=== PATIENT | male | born 1960 | race Caucasian/White ===

== ENCOUNTER 2018-10-28 15:37 | Inpatient (IN) | payer OTHER ==
[~2018-10-28] VITALS: Ht 180.3 cm; Wt 184.2 kg
--- NOTE | 2018-10-28 15:59 | PHYS DOC ---
Past Medical History Past Medical History: Asthma Additional Past Surgical Histo: donated a kidney Alcohol Use: Occasionally Drug Use: None Adult General Chief Complaint Chief Complaint: SYNCOPE HPI HPI Patient is a 57 year old male who presents with a syncopal episode. Patient was sitting at work when his vision grayed down and next thing he knew there were other people were around him. He did become diaphoretic. Patient is a nurse. He denies any chest pain or palpitations. Denies any nausea or vomiting. Denies any focal weakness. [] Review of Systems Review of Systems Constitutional: Denies fever or chills [] Eyes: Denies change in visual acuity, redness, or eye pain [] HENT: Denies nasal congestion or sore throat [] Respiratory: Denies cough or shortness of breath [] Cardiovascular: No chest pain or palpitations[] GI: Denies abdominal pain, nausea, vomiting, bloody stools or diarrhea [] : Denies dysuria or hematuria [] Musculoskeletal: Denies back pain or joint pain [] Integument: Denies rash or skin lesions [] Neurologic: Denies headache, focal weakness or sensory changes [] Endocrine: Denies polyuria or polydipsia [] All other systems were reviewed and found to be within normal limits, except as documented in this note. Allergies Allergies Allergies Coded Allergies Type Severity Reaction Last Updated Verified No Known Drug Allergies 10/28/18 No Physical Exam Physical Exam Constitutional: Well developed, well nourished, no acute distress, non-toxic appearance. [] HENT: Normocephalic, atraumatic, bilateral external ears normal, oropharynx moist, no oral exudates, nose normal. [] Eyes: PERRLA, EOMI, conjunctiva normal, no discharge. [] Neck: Normal range of motion, no tenderness, supple, no stridor. [] Cardiovascular:Heart rate regular rhythm, no murmur [] Lungs & Thorax: Bilateral breath sounds clear to auscultation [] Abdomen: Bowel sounds normal, soft, no tenderness, no masses, no pulsatile masses. [] Skin: Warm, dry, no erythema, no rash. [] Back: No tenderness, no CVA tenderness. [] Extremities: No tenderness, no cyanosis, no clubbing, ROM intact, no edema. [] Neurologic: Alert and oriented X 3, normal motor function, normal sensory function, no focal deficits noted. [] Psychologic: Affect normal, judgement normal, mood normal. [] Current Patient Data Vital Signs Vital Signs Date Time Temp Pulse Resp B/P (MAP) Pulse Ox O2 Delivery O2 Flow Rate FiO2 10/28/18 15:50 98.3 95 19 98/53 (68) 90 Room Air 98.3 Lab Values Laboratory Tests Test 10/28/18 16:30 White Blood Count 14.2 x10^3/uL (4.0-11.0) H Red Blood Count 5.50 x10^6/uL (4.30-5.70) Hemoglobin 16.1 g/dL (13.0-17.5) Hematocrit 48.3 % (39.0-53.0) Mean Corpuscular Volume 88 fL (79-100) Mean Corpuscular Hemoglobin 29 pg (25-35) Mean Corpuscular Hemoglobin Concent 34 g/dL (31-37) Red Cell Distribution Width 14.8 % (11.5-14.5) H Platelet Count 230 x10^3/uL (140-400) Neutrophils (%) (Auto) 76 % (31-73) H Lymphocytes (%) (Auto) 13 % (24-48) L Monocytes (%) (Auto) 10 % (0-9) H Eosinophils (%) (Auto) 1 % (0-3) Basophils (%) (Auto) 1 % (0-3) Neutrophils # (Auto) 10.7 x10^3uL (1.8-7.7) H Lymphocytes # (Auto) 1.9 x10^3/uL (1.0-4.8) Monocytes # (Auto) 1.4 x10^3/uL (0.0-1.1) H Eosinophils # (Auto) 0.1 x10^3/uL (0.0-0.7) Basophils # (Auto) 0.1 x10^3/uL (0.0-0.2) Prothrombin Time 14.5 SEC (11.7-14.0) H Prothrombin Time INR 1.2 (0.8-1.1) H Sodium Level 138 mmol/L (136-145) Potassium Level 4.6 mmol/L (3.5-5.1) Chloride Level 101 mmol/L (98-107) Carbon Dioxide Level 26 mmol/L (21-32) Anion Gap 11 (6-14) Blood Urea Nitrogen 35 mg/dL (8-26) H Creatinine 1.7 mg/dL (0.7-1.3) H Estimated GFR (Cockcroft-Gault) 41.9 BUN/Creatinine Ratio 21 (6-20) H Glucose Level 110 mg/dL (70-99) H Calcium Level 8.8 mg/dL (8.5-10.1) Magnesium Level 2.3 mg/dL (1.8-2.4) Total Bilirubin 0.4 mg/dL (0.2-1.0) Aspartate Amino Transferase (AST) 26 U/L (15-37) Alanine Aminotransferase (ALT) 30 U/L (16-63) Alkaline Phosphatase 84 U/L (46-116) Troponin I Quantitative < 0.017 ng/mL (0.000-0.055) IJ-Lwb-N-Type Natriuretic Peptide 41 pg/mL (0-124) Total Protein 7.5 g/dL (6.4-8.2) Albumin 3.5 g/dL (3.4-5.0) Albumin/Globulin Ratio 0.9 (1.0-1.7) L Thyroid Stimulating Hormone (TSH) 2.501 uIU/mL (0.358-3.74) Laboratory Tests 10/28/18 16:30 Laboratory Tests 10/28/18 16:30 EKG EKG EKG shows atrial flutter rate controlled at 71 bpm, left axis, QTC of 389 ms, no ST elevations. Interpreted by me at 1607[] Radiology/Procedures Radiology/Procedures Chest x-ray shows no acute infiltrate, no effusion, no pneumothorax[] Course & Med Decision Making Course & Med Decision Making Pertinent Labs and Imaging studies reviewed. (See chart for details) ED course: Patient arrived, was placed in bed, and tolerated exam well. Due to the syncopal episode with the new onset of atrial flutter, consultation was made with the hospitalist service for admission. Patient's first set of cardiac enzymes were negative, results were discussed with the patient who voiced understanding. All questions were answered. Delmy decision making: There is no evidence of an ST elevation VT, no evidence of pneumonia, pneumothorax, no evidence of stroke syndrome on physical exam. Concerned because syncopal episode, as to whether this is due to the atrial flutter will require further evaluation.[] Dragon Disclaimer Dragon Disclaimer This electronic medical record was generated, in whole or in part, using a voice recognition dictation system. Departure Departure Impression: Primary Impression: Syncope Additional Impression: Atrial flutter Disposition: 09 ADMITTED INPATIENT Admitting Physician: Brandy Stone Condition: IMPROVED Problem Qualifiers Primary Impression: Syncope Syncope type: unspecified Qualified Codes: R55 - Syncope and collapse Additional Impression: Atrial flutter Atrial flutter type: unspecified Qualified Codes: I48.92 - Unspecified atrial flutter GELY OSPINA DO Oct 28, 2018 15:59
[2018-10-28 16:38] LABS: BASO # 0.1 x10^3/uL (0.0-0.2); BASO % 1 % (0-3); EOS # 0.1 x10^3/uL (0.0-0.7); EOS % 1 % (0-3); HEMATOCRIT 48.3 % (39.0-53.0); HEMOGLOBIN 16.1 g/dL (13.0-17.5); LYMPH # 1.9 x10^3/uL (1.0-4.8); LYMPH % 13 % (24-48); MEAN CORPUSCULAR HEMOGLOBIN 29 pg (25-35); MEAN CORPUSCULAR HGB CONC 34 g/dL (31-37); MEAN CORPUSCULAR VOLUME 88 fL (79-100); MONO # 1.4 x10^3/uL (0.0-1.1); MONO % 10 % (0-9); NEUT # 10.7 x10^3uL (1.8-7.7); NEUT % 76 % (31-73); PLATELET COUNT 230 x10^3/uL (140-400); RED CELL DISTRIBUTION WIDTH 14.8 % (11.5-14.5); WHITE BLOOD COUNT 14.2 x10^3/uL (4.0-11.0)
[2018-10-28 16:51] LABS: PROTHROMBIN TIME PATIENT 14.5 SEC (11.7-14.0)
[2018-10-28 16:52] LABS: CALCIUM 8.8 mg/dL (8.5-10.1); CREATININE 1.7 mg/dL (0.7-1.3); GFR 41.9; POTASSIUM 4.6 mmol/L (3.5-5.1)
--- NOTE | 2018-10-28 16:53 | EKG ---
[facility] [address] [place] [address] Test Date: 2018-10-28 Test Time: 16:05:29 Pat Name: KD DARBY Department: Room: Gender: M Safety Companion: : 1960 Requested By: GELY OSPINA Order Number: [id number] Reading MD: Jaime Del Rosario MD Measurements Intervals [place] Rate: 71 P: TN: QRS: -29 QRSD: 86 T: 22 QT: 354 QTc: 389 Interpretive Statements ATRIAL FLUTTER NON-SPECIFIC ST/T CHANGES Electronically Signed On 11-06-2018 22:24:50 CDT by Jaime Del Rosario MD
[2018-10-28 16:57] LABS: ALBUMIN 3.5 g/dL (3.4-5.0); ALBUMIN/GLOBULIN RATIO 0.9 (1.0-1.7); MAGNESIUM 2.3 mg/dL (1.8-2.4); TOTAL BILIRUBIN 0.4 mg/dL (0.2-1.0); TOTAL PROTEIN 7.5 g/dL (6.4-8.2)
[2018-10-28] MEDS ORDERED: NITROGLYCERIN SUBLINGUAL 0.4 MG BOTTLE OF 25. SL PRN (17:30)
[2018-10-28] MEDS ORDERED: ONDANSETRON PF 4 MG/2 ML VIAL. IV PRN (17:30)
[2018-10-28] MEDS ORDERED: ACETAMINOPHEN 325 MG TABLET. PO PRN (17:30)
--- NOTE | 2018-10-28 17:37 | RAD ---
EXAM: Chest, single view. HISTORY: Syncope. COMPARISON: None. FINDINGS: A frontal view of the chest is obtained. There is no infiltrate, pleural effusion or pneumothorax. The heart is normal in size. There is a dorsal column stimulator terminating over the upper thoracic vertebral column. IMPRESSION: No acute pulmonary finding. Electronically signed by: Elisabeth Magallno MD (10/28/2018 5:35 PM) [facility]
--- NOTE | 2018-10-28 19:00 | NUR ---
pt admitted to room 112 from ED at this time. pt alert and orient x4, able to obtain admission questions without difficulty. VSS. pt updated on plan of care, unit routines, NPO after midnight reasoning; all questions answered. partnerLm, phoned unit and updated on pt's status with pt's consent. call light within reach, will continue to closely monitor.
[2018-10-28 20:00] VITALS: BP 114/53
[2018-10-28] MEDS: cefTRIAXone IV Push 1 GM VIAL. IVP SCH (20:00)
--- NOTE | 2018-10-28 21:20 | HP ---
ADMIT DATE: 10/28/2018 CHIEF COMPLAINT: Syncope. 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 He had a syncopal episode. States he felt his vision grade and then, he passed out. Once he woke up, he denied any other symptoms. I have discussed the case with ER physician. It appears he is in Aflutter. We are going to admit the patient and consult Cardiology. PAST MEDICAL HISTORY: Obesity and asthma and he donated a kidney. ALLERGIES: None. FAMILY HISTORY: Hypertension. SOCIAL HISTORY: He does not drink, smoke or take drugs. He is an RN, works at the present. MEDICATIONS: Reviewed, please refer to the MRAD. REVIEW OF SYSTEMS: GENERAL: No history of weight change, weakness or fevers. SKIN: No bruising, hair changes or rashes. EYES: No blurred, double or loss of vision. NOSE AND THROAT: No history of nosebleeds, hoarseness or sore throat. HEART: No history of palpitations, chest pain or shortness of breath on exertion. LUNGS: Denies cough, hemoptysis, wheezing or shortness of breath. GASTROINTESTINAL: Denies changes in appetite, nausea, vomiting, diarrhea or constipation. GENITOURINARY: No history of frequency, urgency, hesitancy or nocturia. NEUROLOGIC: Denies history of numbness, tingling, tremor or weakness. PSYCHIATRIC: No history of panic, anxiety or depression. ENDOCRINE: No history of heat or cold intolerance, polyuria or polydipsia. EXTREMITIES: Denies muscle weakness, joint pain, pain on walking or stiffness. PHYSICAL EXAMINATION: VITAL SIGNS: Temperature afebrile, pulse 74, respirations 20, blood pressure 117/59, O2 sat 97% on 3 liters. GENERAL: He is awake, alert, cooperative in the ICU. HEART: Normal S1, S2. Irregular on the monitor. LUNGS: Clear. ABDOMEN: Soft, obese. EXTREMITIES: 1+ edema. SKIN: No rashes. ENDOCRINE: No thyromegaly. LYMPHATICS: No cervical nodes. HEMATOPOIETIC: No bruising. PSYCHIATRIC: He is stable. LABORATORY DATA: White count is 14, hemoglobin 16, platelets 230. Electrolytes are normal other than BUN of 35 and creatinine of 1.7. Glucose is high at 110. INR is 1.2. ASSESSMENT AND PLAN: Atrial flutter, syncope and acute on chronic renal failure and leukocytosis. The patient has been admitted. We are consulting Nephrology and Cardiology. IV fluids. Cardiac monitoring. Deep vein thrombosis prophylaxis. Full code. Home meds. Frequent labs. Methicillin resistant Staphylococcus aureus screening. yon Porter Tylenol. BRYNN YEPEZ DO DR: VICENTA/catarina JOB#: [id number] / [id number]
[2018-10-28] MEDS ORDERED: MODA100T2 PO (21:22)
[2018-10-28] MEDS ORDERED: ALLO100T PO (21:22)
[2018-10-28] MEDS ORDERED: ROPI1TAB PO ×2 (21:22)
[2018-10-28] MEDS ORDERED: HYDR-2769 PO (21:22)
[2018-10-28] MEDS ORDERED: FURO40TA4 PO (21:22)
[2018-10-28] MEDS ORDERED: LISI-334 PO (21:22)
[2018-10-28] MEDS ORDERED: PREG100C PO (21:22)
[2018-10-28 23:35] LABS: BILIRUBIN,URINE NEGATIVE (NEG); CLARITY,URINE CLEAR; COLOR,URINE YELLOW; NITRITE,URINE NEGATIVE (NEG); PH,URINE 5.5; PROTEIN,URINE NEGATIVE (NEG-TRACE)
[2018-10-28 23:48] LABS: BACTERIA,URINE 0 /HPF (0-FEW); GRANULAR CASTS,URINE FEW /HPF; HYALINE CASTS, URINE MODERATE /HPF; RBC,URINE OCC /HPF (0-2); SQUAMOUS EPITHELIAL CELL,UR FEW /LPF; WBC,URINE OCC /HPF (0-4)
[2018-10-29] VITALS (7 sets, daily range): BP systolic 98–126; BP diastolic 49–78
[2018-10-29 04:11] LABS: BASO # 0.1 x10^3/uL (0.0-0.2); BASO % 1 % (0-3); EOS # 0.2 x10^3/uL (0.0-0.7); EOS % 2 % (0-3); HEMATOCRIT 48.3 % (39.0-53.0); HEMOGLOBIN 15.6 g/dL (13.0-17.5); LYMPH # 2.9 x10^3/uL (1.0-4.8); LYMPH % 26 % (24-48); MEAN CORPUSCULAR HEMOGLOBIN 28 pg (25-35); MEAN CORPUSCULAR HGB CONC 32 g/dL (31-37); MEAN CORPUSCULAR VOLUME 88 fL (79-100); MONO # 1.1 x10^3/uL (0.0-1.1); MONO % 10 % (0-9); NEUT # 6.8 x10^3uL (1.8-7.7); NEUT % 61 % (31-73); PLATELET COUNT 240 x10^3/uL (140-400); RED CELL DISTRIBUTION WIDTH 15.1 % (11.5-14.5); WHITE BLOOD COUNT 11.1 x10^3/uL (4.0-11.0)
[2018-10-29 04:54] LABS: ALBUMIN 3.4 g/dL (3.4-5.0); ALBUMIN/GLOBULIN RATIO 0.9 (1.0-1.7); CALCIUM 8.6 mg/dL (8.5-10.1); CREATININE 1.2 mg/dL (0.7-1.3); GFR 62.6; POTASSIUM 4.4 mmol/L (3.5-5.1); TOTAL BILIRUBIN 0.6 mg/dL (0.2-1.0); TOTAL PROTEIN 7.1 g/dL (6.4-8.2)
[2018-10-29 05:12] LABS: CHOLESTEROL/HDL RATIO 6.2
[2018-10-29] MEDS ORDERED: BACITRACIN 50,000 UNIT in IV NORMAL SALINE 1000ML BAG 1,000 ML IRR ONE (06:00)
--- NOTE | 2018-10-29 10:51 | PDOC ---
PROGRESS NOTES History of Present Illness History of Present Illness ASSESSMENT AND PLAN: Atrial flutter, syncope acute on chronic renal failure and leukocytosis. 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 consult Nephrology consult Cardiology. IV fluids. Cardiac monitoring. Deep vein thrombosis prophylaxis. Full code. Home meds. Frequent labs. Methicillin resistant Staphylococcus aureus screening. PRN Zofran, p.r.n. Tylenol. 32 min cc time Vitals Vitals Vital Signs Date Time Temp Pulse Resp B/P (MAP) Pulse Ox O2 Delivery O2 Flow Rate FiO2 10/29/18 08:00 Nasal Cannula 2.0 10/29/18 04:00 97.9 69 14 98/49 (65) 94 97.9 Physical Exam Physical Exam Max HR: 114 bpm Max Blood Pressure: 134/59mmHg Blood Pressure response to exercise: Normal blood pressure response during stress. Heart Rate response to exercise: WNL Chest Pain: No. Arrhythmia: No. ST Change: No. INTERPRETATION Stress EKG Conclusion: No evidence of stress induced EKG changes. Imaging Protocol IMAGE PROTOCOL: Stress Tc-99m/rest Tc-99m 2 days Rest: Stress: Viability: Radiopharm. Tc99m Sestamibi Dose 33mCi Duration 15min. Img Date 10/29/2018 Inj-Img Time 60min. Stress Admin Site: IV - Left Antecubital Ict Trainer: JUDI Denton, LEE ANN (R)(N) STRESS DATA End Diast. Vol. 163.0ml Av. Heart Rate 93.0bpm End Syst. Vol. 54.0ml CO Index BSA 0.0L/min Myocardial Mass 182.0g Eject. Fraction 67.0% Stress Rates Pk. Fill Rate 3.15EDV/sec LVtime Pk. Fill 78.27msec Pk. Empty Rate 3.27ESV/sec LVtime Pk. Eject 98.96msec 08/23 Pk. Fill 2.41EDV/sec Stress Scores Regional WT 2.00 Summed WT 7.00 Regional WM 0.00 Summed WM 1.00 LV Perfusion Normal perfusion at stress imaging Wall Motion Normal wall motion with EF > 60% LV Perf. Quant 17 Seg. SSS 0.00 Stress Defect Extent (% LAD) 0.00 Rest Defect Extent (% LAD) Rev. Defect Extent (% LAD) 0.00 Stress Defect Extent (% LCX) 0.00 Rest Defect Extent (% LCX) Rev. Defect Extent (% LCX) 0.00 Stress Defect Extent (% RCA) 0.00 Rest Defect Extent (% RCA) Rev. Defect Extent (% RCA) 0.00 Stress Defect Extent (% LUIS) 0.00 Rest Defect Extent (% LUIS) Rev. Defect Extent (% LUIS) 0.00 Other Information Quality:Average Risk Assessment: Low Risk Conclusion 1. No evidence of stress induced EKG changes 2. Normal perfusion at stress. 3. Normal EF at > 60% 4. Low risk study. Signed by : Jaime Del Rosario, Electronically Approved : 10/29/2018 15:25:19 Labs LABS Laboratory Tests Test 10/28/18 16:30 10/28/18 20:45 10/28/18 23:10 10/28/18 23:40 White Blood Count 14.2 x10^3/uL (4.0-11.0) Red Blood Count 5.50 x10^6/uL (4.30-5.70) Hemoglobin 16.1 g/dL (13.0-17.5) Hematocrit 48.3 % (39.0-53.0) Mean Corpuscular Volume 88 fL (79-100) Mean Corpuscular Hemoglobin 29 pg (25-35) Mean Corpuscular Hemoglobin Concent 34 g/dL (31-37) Red Cell Distribution Width 14.8 % (11.5-14.5) Platelet Count 230 x10^3/uL (140-400) Neutrophils (%) (Auto) 76 % (31-73) Lymphocytes (%) (Auto) 13 % (24-48) Monocytes (%) (Auto) 10 % (0-9) Eosinophils (%) (Auto) 1 % (0-3) Basophils (%) (Auto) 1 % (0-3) Neutrophils # (Auto) 10.7 x10^3uL (1.8-7.7) Lymphocytes # (Auto) 1.9 x10^3/uL (1.0-4.8) Monocytes # (Auto) 1.4 x10^3/uL (0.0-1.1) Eosinophils # (Auto) 0.1 x10^3/uL (0.0-0.7) Basophils # (Auto) 0.1 x10^3/uL (0.0-0.2) Prothrombin Time 14.5 SEC (11.7-14.0) Prothromb Time International Ratio 1.2 (0.8-1.1) Sodium Level 138 mmol/L (136-145) Potassium Level 4.6 mmol/L (3.5-5.1) Chloride Level 101 mmol/L (98-107) Carbon Dioxide Level 26 mmol/L (21-32) Anion Gap 11 (6-14) Blood Urea Nitrogen 35 mg/dL (8-26) Creatinine 1.7 mg/dL (0.7-1.3) Estimated GFR (Cockcroft-Gault) 41.9 BUN/Creatinine Ratio 21 (6-20) Glucose Level 110 mg/dL (70-99) Calcium Level 8.8 mg/dL (8.5-10.1) Magnesium Level 2.3 mg/dL (1.8-2.4) Total Bilirubin 0.4 mg/dL (0.2-1.0) Aspartate Amino Transf (AST/SGOT) 26 U/L (15-37) Alanine Aminotransferase (ALT/SGPT) 30 U/L (16-63) Alkaline Phosphatase 84 U/L (46-116) Troponin I Quantitative < 0.017 ng/mL (0.000-0.055) < 0.017 ng/mL (0.000-0.055) < 0.017 ng/mL (0.000-0.055) QW-Mhd-N-Type Natriuretic Peptide 41 pg/mL (0-124) Total Protein 7.5 g/dL (6.4-8.2) Albumin 3.5 g/dL (3.4-5.0) Albumin/Globulin Ratio 0.9 (1.0-1.7) Thyroid Stimulating Hormone (TSH) 2.501 uIU/mL (0.358-3.74) Urine Collection Type Unknown Urine Color Yellow Urine Clarity Clear Urine pH 5.5 Urine Specific [place] 1.025 Urine Protein Negative mg/dL (NEG-TRACE) Urine Glucose (UA) Negative mg/dL (NEG) Urine Ketones (Stick) Negative mg/dL (NEG) Urine Blood Negative (NEG) Urine Nitrite Negative (NEG) Urine Bilirubin Negative (NEG) Urine Urobilinogen Dipstick 1.0 mg/dL (0.2 mg/dL) Urine Leukocyte Esterase Negative (NEG) Urine RBC Occ /HPF (0-2) Urine WBC Occ /HPF (0-4) Urine Squamous Epithelial Cells Few /LPF Urine Bacteria 0 /HPF (0-FEW) Urine Hyaline Casts Moderate /HPF Urine Granular Casts Few /HPF Urine Mucus Slight /LPF Test 10/29/18 03:35 White Blood Count 11.1 x10^3/uL (4.0-11.0) Red Blood Count 5.50 x10^6/uL (4.30-5.70) Hemoglobin 15.6 g/dL (13.0-17.5) Hematocrit 48.3 % (39.0-53.0) Mean Corpuscular Volume 88 fL (79-100) Mean Corpuscular Hemoglobin 28 pg (25-35) Mean Corpuscular Hemoglobin Concent 32 g/dL (31-37) Red Cell Distribution Width 15.1 % (11.5-14.5) Platelet Count 240 x10^3/uL (140-400) Neutrophils (%) (Auto) 61 % (31-73) Lymphocytes (%) (Auto) 26 % (24-48) Monocytes (%) (Auto) 10 % (0-9) Eosinophils (%) (Auto) 2 % (0-3) Basophils (%) (Auto) 1 % (0-3) Neutrophils # (Auto) 6.8 x10^3uL (1.8-7.7) Lymphocytes # (Auto) 2.9 x10^3/uL (1.0-4.8) Monocytes # (Auto) 1.1 x10^3/uL (0.0-1.1) Eosinophils # (Auto) 0.2 x10^3/uL (0.0-0.7) Basophils # (Auto) 0.1 x10^3/uL (0.0-0.2) Sodium Level 141 mmol/L (136-145) Potassium Level 4.4 mmol/L (3.5-5.1) Chloride Level 102 mmol/L (98-107) Carbon Dioxide Level 29 mmol/L (21-32) Anion Gap 10 (6-14) Blood Urea Nitrogen 27 mg/dL (8-26) Creatinine 1.2 mg/dL (0.7-1.3) Estimated GFR (Cockcroft-Gault) 62.6 BUN/Creatinine Ratio 23 (6-20) Glucose Level 91 mg/dL (70-99) Calcium Level 8.6 mg/dL (8.5-10.1) Total Bilirubin 0.6 mg/dL (0.2-1.0) Aspartate Amino Transf (AST/SGOT) 18 U/L (15-37) Alanine Aminotransferase (ALT/SGPT) 28 U/L (16-63) Alkaline Phosphatase 78 U/L (46-116) Total Protein 7.1 g/dL (6.4-8.2) Albumin 3.4 g/dL (3.4-5.0) Albumin/Globulin Ratio 0.9 (1.0-1.7) Triglycerides Level 125 mg/dL (0-150) Cholesterol Level 136 mg/dL (0-200) LDL Cholesterol, Calculated 89 mg/dL (0-100) VLDL Cholesterol, Calculated 25 mg/dL (0-40) Non-HDL Cholesterol Calculated 114 mg/dL (0-129) HDL Cholesterol 22 mg/dL (40-60) Cholesterol/HDL Ratio 6.2 Comment Review of Relevant I have reviewed the following items lyndsey (where applicable) has been applied. Labs Laboratory Tests Test 10/28/18 16:30 10/28/18 20:45 10/28/18 23:10 10/28/18 23:40 White Blood Count 14.2 x10^3/uL (4.0-11.0) Red Blood Count 5.50 x10^6/uL (4.30-5.70) Hemoglobin 16.1 g/dL (13.0-17.5) Hematocrit 48.3 % (39.0-53.0) Mean Corpuscular Volume 88 fL (79-100) Mean Corpuscular Hemoglobin 29 pg (25-35) Mean Corpuscular Hemoglobin Concent 34 g/dL (31-37) Red Cell Distribution Width 14.8 % (11.5-14.5) Platelet Count 230 x10^3/uL (140-400) Neutrophils (%) (Auto) 76 % (31-73) Lymphocytes (%) (Auto) 13 % (24-48) Monocytes (%) (Auto) 10 % (0-9) Eosinophils (%) (Auto) 1 % (0-3) Basophils (%) (Auto) 1 % (0-3) Neutrophils # (Auto) 10.7 x10^3uL (1.8-7.7) Lymphocytes # (Auto) 1.9 x10^3/uL (1.0-4.8) Monocytes # (Auto) 1.4 x10^3/uL (0.0-1.1) Eosinophils # (Auto) 0.1 x10^3/uL (0.0-0.7) Basophils # (Auto) 0.1 x10^3/uL (0.0-0.2) Prothrombin Time 14.5 SEC (11.7-14.0) Prothromb Time International Ratio 1.2 (0.8-1.1) Sodium Level 138 mmol/L (136-145) Potassium Level 4.6 mmol/L (3.5-5.1) Chloride Level 101 mmol/L (98-107) Carbon Dioxide Level 26 mmol/L (21-32) Anion Gap 11 (6-14) Blood Urea Nitrogen 35 mg/dL (8-26) Creatinine 1.7 mg/dL (0.7-1.3) Estimated GFR (Cockcroft-Gault) 41.9 BUN/Creatinine Ratio 21 (6-20) Glucose Level 110 mg/dL (70-99) Calcium Level 8.8 mg/dL (8.5-10.1) Magnesium Level 2.3 mg/dL (1.8-2.4) Total Bilirubin 0.4 mg/dL (0.2-1.0) Aspartate Amino Transf (AST/SGOT) 26 U/L (15-37) Alanine Aminotransferase (ALT/SGPT) 30 U/L (16-63) Alkaline Phosphatase 84 U/L (46-116) Troponin I Quantitative < 0.017 ng/mL (0.000-0.055) < 0.017 ng/mL (0.000-0.055) < 0.017 ng/mL (0.000-0.055) PT-Ngm-P-Type Natriuretic Peptide 41 pg/mL (0-124) Total Protein 7.5 g/dL (6.4-8.2) Albumin 3.5 g/dL (3.4-5.0) Albumin/Globulin Ratio 0.9 (1.0-1.7) Thyroid Stimulating Hormone (TSH) 2.501 uIU/mL (0.358-3.74) Urine Collection Type Unknown Urine Color Yellow Urine Clarity Clear Urine pH 5.5 Urine Specific [place] 1.025 Urine Protein Negative mg/dL (NEG-TRACE) Urine Glucose (UA) Negative mg/dL (NEG) Urine Ketones (Stick) Negative mg/dL (NEG) Urine Blood Negative (NEG) Urine Nitrite Negative (NEG) Urine Bilirubin Negative (NEG) Urine Urobilinogen Dipstick 1.0 mg/dL (0.2 mg/dL) Urine Leukocyte Esterase Negative (NEG) Urine RBC Occ /HPF (0-2) Urine WBC Occ /HPF (0-4) Urine Squamous Epithelial Cells Few /LPF Urine Bacteria 0 /HPF (0-FEW) Urine Hyaline Casts Moderate /HPF Urine Granular Casts Few /HPF Urine Mucus Slight /LPF Test 10/29/18 03:35 White Blood Count 11.1 x10^3/uL (4.0-11.0) Red Blood Count 5.50 x10^6/uL (4.30-5.70) Hemoglobin 15.6 g/dL (13.0-17.5) Hematocrit 48.3 % (39.0-53.0) Mean Corpuscular Volume 88 fL (79-100) Mean Corpuscular Hemoglobin 28 pg (25-35) Mean Corpuscular Hemoglobin Concent 32 g/dL (31-37) Red Cell Distribution Width 15.1 % (11.5-14.5) Platelet Count 240 x10^3/uL (140-400) Neutrophils (%) (Auto) 61 % (31-73) Lymphocytes (%) (Auto) 26 % (24-48) Monocytes (%) (Auto) 10 % (0-9) Eosinophils (%) (Auto) 2 % (0-3) Basophils (%) (Auto) 1 % (0-3) Neutrophils # (Auto) 6.8 x10^3uL (1.8-7.7) Lymphocytes # (Auto) 2.9 x10^3/uL (1.0-4.8) Monocytes # (Auto) 1.1 x10^3/uL (0.0-1.1) Eosinophils # (Auto) 0.2 x10^3/uL (0.0-0.7) Basophils # (Auto) 0.1 x10^3/uL (0.0-0.2) Sodium Level 141 mmol/L (136-145) Potassium Level 4.4 mmol/L (3.5-5.1) Chloride Level 102 mmol/L (98-107) Carbon Dioxide Level 29 mmol/L (21-32) Anion Gap 10 (6-14) Blood Urea Nitrogen 27 mg/dL (8-26) Creatinine 1.2 mg/dL (0.7-1.3) Estimated GFR (Cockcroft-Gault) 62.6 BUN/Creatinine Ratio 23 (6-20) Glucose Level 91 mg/dL (70-99) Calcium Level 8.6 mg/dL (8.5-10.1) Total Bilirubin 0.6 mg/dL (0.2-1.0) Aspartate Amino Transf (AST/SGOT) 18 U/L (15-37) Alanine Aminotransferase (ALT/SGPT) 28 U/L (16-63) Alkaline Phosphatase 78 U/L (46-116) Total Protein 7.1 g/dL (6.4-8.2) Albumin 3.4 g/dL (3.4-5.0) Albumin/Globulin Ratio 0.9 (1.0-1.7) Triglycerides Level 125 mg/dL (0-150) Cholesterol Level 136 mg/dL (0-200) LDL Cholesterol, Calculated 89 mg/dL (0-100) VLDL Cholesterol, Calculated 25 mg/dL (0-40) Non-HDL Cholesterol Calculated 114 mg/dL (0-129) HDL Cholesterol 22 mg/dL (40-60) Cholesterol/HDL Ratio 6.2 Laboratory Tests Test 10/28/18 16:30 10/28/18 20:45 10/28/18 23:10 10/28/18 23:40 White Blood Count 14.2 x10^3/uL (4.0-11.0) Red Blood Count 5.50 x10^6/uL (4.30-5.70) Hemoglobin 16.1 g/dL (13.0-17.5) Hematocrit 48.3 % (39.0-53.0) Mean Corpuscular Volume 88 fL (79-100) Mean Corpuscular Hemoglobin 29 pg (25-35) Mean Corpuscular Hemoglobin Concent 34 g/dL (31-37) Red Cell Distribution Width 14.8 % (11.5-14.5) Platelet Count 230 x10^3/uL (140-400) Neutrophils (%) (Auto) 76 % (31-73) Lymphocytes (%) (Auto) 13 % (24-48) Monocytes (%) (Auto) 10 % (0-9) Eosinophils (%) (Auto) 1 % (0-3) Basophils (%) (Auto) 1 % (0-3) Neutrophils # (Auto) 10.7 x10^3uL (1.8-7.7) Lymphocytes # (Auto) 1.9 x10^3/uL (1.0-4.8) Monocytes # (Auto) 1.4 x10^3/uL (0.0-1.1) Eosinophils # (Auto) 0.1 x10^3/uL (0.0-0.7) Basophils # (Auto) 0.1 x10^3/uL (0.0-0.2) Prothrombin Time 14.5 SEC (11.7-14.0) Prothromb Time International Ratio 1.2 (0.8-1.1) Sodium Level 138 mmol/L (136-145) Potassium Level 4.6 mmol/L (3.5-5.1) Chloride Level 101 mmol/L (98-107) Carbon Dioxide Level 26 mmol/L (21-32) Anion Gap 11 (6-14) Blood Urea Nitrogen 35 mg/dL (8-26) Creatinine 1.7 mg/dL (0.7-1.3) Estimated GFR (Cockcroft-Gault) 41.9 BUN/Creatinine Ratio 21 (6-20) Glucose Level 110 mg/dL (70-99) Calcium Level 8.8 mg/dL (8.5-10.1) Magnesium Level 2.3 mg/dL (1.8-2.4) Total Bilirubin 0.4 mg/dL (0.2-1.0) Aspartate Amino Transf (AST/SGOT) 26 U/L (15-37) Alanine Aminotransferase (ALT/SGPT) 30 U/L (16-63) Alkaline Phosphatase 84 U/L (46-116) Troponin I Quantitative < 0.017 ng/mL (0.000-0.055) < 0.017 ng/mL (0.000-0.055) < 0.017 ng/mL (0.000-0.055) SD-Rze-R-Type Natriuretic Peptide 41 pg/mL (0-124) Total Protein 7.5 g/dL (6.4-8.2) Albumin 3.5 g/dL (3.4-5.0) Albumin/Globulin Ratio 0.9 (1.0-1.7) Thyroid Stimulating Hormone (TSH) 2.501 uIU/mL (0.358-3.74) Urine Collection Type Unknown Urine Color Yellow Urine Clarity Clear Urine pH 5.5 Urine Specific [place] 1.025 Urine Protein Negative mg/dL (NEG-TRACE) Urine Glucose (UA) Negative mg/dL (NEG) Urine Ketones (Stick) Negative mg/dL (NEG) Urine Blood Negative (NEG) Urine Nitrite Negative (NEG) Urine Bilirubin Negative (NEG) Urine Urobilinogen Dipstick 1.0 mg/dL (0.2 mg/dL) Urine Leukocyte Esterase Negative (NEG) Urine RBC Occ /HPF (0-2) Urine WBC Occ /HPF (0-4) Urine Squamous Epithelial Cells Few /LPF Urine Bacteria 0 /HPF (0-FEW) Urine Hyaline Casts Moderate /HPF Urine Granular Casts Few /HPF Urine Mucus Slight /LPF Test 10/29/18 03:35 White Blood Count 11.1 x10^3/uL (4.0-11.0) Red Blood Count 5.50 x10^6/uL (4.30-5.70) Hemoglobin 15.6 g/dL (13.0-17.5) Hematocrit 48.3 % (39.0-53.0) Mean Corpuscular Volume 88 fL (79-100) Mean Corpuscular Hemoglobin 28 pg (25-35) Mean Corpuscular Hemoglobin Concent 32 g/dL (31-37) Red Cell Distribution Width 15.1 % (11.5-14.5) Platelet Count 240 x10^3/uL (140-400) Neutrophils (%) (Auto) 61 % (31-73) Lymphocytes (%) (Auto) 26 % (24-48) Monocytes (%) (Auto) 10 % (0-9) Eosinophils (%) (Auto) 2 % (0-3) Basophils (%) (Auto) 1 % (0-3) Neutrophils # (Auto) 6.8 x10^3uL (1.8-7.7) Lymphocytes # (Auto) 2.9 x10^3/uL (1.0-4.8) Monocytes # (Auto) 1.1 x10^3/uL (0.0-1.1) Eosinophils # (Auto) 0.2 x10^3/uL (0.0-0.7) Basophils # (Auto) 0.1 x10^3/uL (0.0-0.2) Sodium Level 141 mmol/L (136-145) Potassium Level 4.4 mmol/L (3.5-5.1) Chloride Level 102 mmol/L (98-107) Carbon Dioxide Level 29 mmol/L (21-32) Anion Gap 10 (6-14) Blood Urea Nitrogen 27 mg/dL (8-26) Creatinine 1.2 mg/dL (0.7-1.3) Estimated GFR (Cockcroft-Gault) 62.6 BUN/Creatinine Ratio 23 (6-20) Glucose Level 91 mg/dL (70-99) Calcium Level 8.6 mg/dL (8.5-10.1) Total Bilirubin 0.6 mg/dL (0.2-1.0) Aspartate Amino Transf (AST/SGOT) 18 U/L (15-37) Alanine Aminotransferase (ALT/SGPT) 28 U/L (16-63) Alkaline Phosphatase 78 U/L (46-116) Total Protein 7.1 g/dL (6.4-8.2) Albumin 3.4 g/dL (3.4-5.0) Albumin/Globulin Ratio 0.9 (1.0-1.7) Triglycerides Level 125 mg/dL (0-150) Cholesterol Level 136 mg/dL (0-200) LDL Cholesterol, Calculated 89 mg/dL (0-100) VLDL Cholesterol, Calculated 25 mg/dL (0-40) Non-HDL Cholesterol Calculated 114 mg/dL (0-129) HDL Cholesterol 22 mg/dL (40-60) Cholesterol/HDL Ratio 6.2 Medications Current Medications Ondansetron HCl (Zofran) 4 mg PRN Q8HRS PRN IV NAUSEA/VOMITING; Start 10/28/18 at 17:30; Stop 10/29/18 at 17:29 Acetaminophen (Tylenol) 650 mg PRN Q4HRS PRN PO FEVER; Start 10/28/18 at 17:30 ; Stop 10/29/18 at 17:29 Nitroglycerin (Nitrostat) 0.4 mg PRN Q5MIN PRN SL CHEST PAIN; Start 10/28/18 at 17:30; Stop 10/29/18 at 17:29 Ceftriaxone Sodium (Rocephin) 1 gm Q24H IVP ; Start 10/28/18 at 20:00 Active Scripts Active Reported Requip (Ropinirole Hcl) 1 Mg Tablet 2 Tab PO QHS Requip (Ropinirole Hcl) 1 Mg Tablet 1 Tab PO DAILY Modafinil 100 Mg Tablet 100 Mg PO Hydrocodone-Apap 10-325 (Hydrocodone Bit/Acetaminophen) 1 Tab Tablet 1 Tab PO QID Lisinopril 20 Mg Tablet 1 Tab PO DAILY Furosemide 40 Mg Tablet 60 Mg PO DAILY Allopurinol 100 Mg Tablet 1 Tab PO BID Lyrica (Pregabalin) 100 Mg Capsule 1 Cap PO QID Vitals/I & O Vital Sign - Last 24 Hours 10/28/18 10/28/18 10/28/18 10/28/18 15:50 16:15 16:45 17:15 Temp 98.3 98.3 Pulse 95 72 72 72 Resp 19 B/P (MAP) 98/53 (68) 98/56 (70) 113/49 (70) 117/59 (78) Pulse Ox 90 96 97 97 O2 Delivery Room Air Nasal Cannula Nasal Cannula Nasal Cannula O2 Flow Rate 3.0 3.0 3.0 10/28/18 10/28/18 10/28/18 10/29/18 17:45 20:00 20:00 00:00 Temp 98.4 98.6 98.4 98.6 Pulse 70 84 70 Resp 24 20 B/P (MAP) 103/54 (70) 114/53 (73) 108/51 (70) Pulse Ox 97 95 98 O2 Delivery Nasal Cannula Nasal Cannula Nasal Cannula Nasal Cannula O2 Flow Rate 3.0 2.0 2.0 2.0 10/29/18 10/29/18 04:00 08:00 Temp 97.9 97.9 Pulse 69 Resp 14 B/P (MAP) 98/49 (65) Pulse Ox 94 O2 Delivery Room Air Nasal Cannula O2 Flow Rate 2.0 Intake and Output 10/28/18 10/28/18 10/29/18 14:59 22:59 06:59 Intake Total 500 ml 500 ml Output Total 1450 ml Balance 500 ml -950 ml MIESHA MARTINEZ MD Oct 29, 2018 10:51
--- NOTE | 2018-10-29 10:56 | PDOC2 ---
CONSULT Date of Consult Date of Consult DATE: 10/29/18 TIME: 10:50 Reason for Consult Reason for Consult: IZZY Referring Physician Referring Physician: MARLENI Identification/Chief Complaint Chief Complaint SYNCOPE Source Source: Chart review History of Present Illness Reason for Visit: THIS IS A 57 YR OLD WITH SYNCOPAL EPISODE. PT NOTED TO BE IN AFLUTTER. NOW IN THE ICU AND HEMODYNAMICALLY STABLE. CR ON ADMIT OF 1.7 AND TODAY 1.2. HAS BASELINE CR OF ABOUT 1.0-1.1. 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 HAS BEEN DOING WELL SINCE THEN. NO NSAIDS OR NEPHROTOXINS NOTED. NO OTHER HX Past Medical History Cardiovascular: HTN Rheumatologic: Gout Past Surgical History Past Surgical History LEFT NEPHRECTOMY-DONATION TO HIS DAUGHTER Family History Family History: Hypertension Current Medications Current Medications Current Medications Ondansetron HCl (Zofran) 4 mg PRN Q8HRS PRN IV NAUSEA/VOMITING; Start 10/28/18 at 17:30; Stop 10/29/18 at 17:29 Acetaminophen (Tylenol) 650 mg PRN Q4HRS PRN PO FEVER; Start 10/28/18 at 17:30 ; Stop 10/29/18 at 17:29 Nitroglycerin (Nitrostat) 0.4 mg PRN Q5MIN PRN SL CHEST PAIN; Start 10/28/18 at 17:30; Stop 10/29/18 at 17:29 Ceftriaxone Sodium (Rocephin) 1 gm Q24H IVP ; Start 10/28/18 at 20:00 Active Scripts Active Reported Requip (Ropinirole Hcl) 1 Mg Tablet 2 Tab PO QHS Requip (Ropinirole Hcl) 1 Mg Tablet 1 Tab PO DAILY Modafinil 100 Mg Tablet 100 Mg PO Hydrocodone-Apap 10-325 (Hydrocodone Bit/Acetaminophen) 1 Tab Tablet 1 Tab PO QID Lisinopril 20 Mg Tablet 1 Tab PO DAILY Furosemide 40 Mg Tablet 60 Mg PO DAILY Allopurinol 100 Mg Tablet 1 Tab PO BID Lyrica (Pregabalin) 100 Mg Capsule 1 Cap PO QID Allergies Allergies: Coded Allergies: No Known Drug Allergies (Unverified , 10/28/18) ROS Review of System FULL ROS NEG EXCEPT ABOVE. NO RELATED SYMPTOMS NOTED Genitourinary: YES Other (NOCTURIA) Physical Exam General: Alert, Oriented X3, Cooperative, No acute distress HEENT: Atraumatic, PERRLA, EOMI, Mucous membr. moist/pink Lungs: Clear to auscultation, Normal air movement Heart: Regular rate, Normal S1, Normal S2, Gallops Abdomen: Normal bowel sounds, Soft Extremities: No clubbing Skin: No breakdown Neuro: Normal speech, Sensation intact, Cranial nerves 3-12 NL Psych/Mental Status: Mental status NL, Mood NL MUSCULOSKELETAL: No joint tenderness, No deformity, No swelling Vitals VITALS Vital Signs Date Time Temp Pulse Resp B/P (MAP) Pulse Ox O2 Delivery O2 Flow Rate FiO2 10/29/18 08:00 Nasal Cannula 2.0 10/29/18 04:00 97.9 69 14 98/49 (65) 94 97.9 Labs Labs Laboratory Tests Test 10/28/18 16:30 10/28/18 20:45 10/28/18 23:10 10/28/18 23:40 White Blood Count 14.2 x10^3/uL (4.0-11.0) Red Blood Count 5.50 x10^6/uL (4.30-5.70) Hemoglobin 16.1 g/dL (13.0-17.5) Hematocrit 48.3 % (39.0-53.0) Mean Corpuscular Volume 88 fL (79-100) Mean Corpuscular Hemoglobin 29 pg (25-35) Mean Corpuscular Hemoglobin Concent 34 g/dL (31-37) Red Cell Distribution Width 14.8 % (11.5-14.5) Platelet Count 230 x10^3/uL (140-400) Neutrophils (%) (Auto) 76 % (31-73) Lymphocytes (%) (Auto) 13 % (24-48) Monocytes (%) (Auto) 10 % (0-9) Eosinophils (%) (Auto) 1 % (0-3) Basophils (%) (Auto) 1 % (0-3) Neutrophils # (Auto) 10.7 x10^3uL (1.8-7.7) Lymphocytes # (Auto) 1.9 x10^3/uL (1.0-4.8) Monocytes # (Auto) 1.4 x10^3/uL (0.0-1.1) Eosinophils # (Auto) 0.1 x10^3/uL (0.0-0.7) Basophils # (Auto) 0.1 x10^3/uL (0.0-0.2) Prothrombin Time 14.5 SEC (11.7-14.0) Prothromb Time International Ratio 1.2 (0.8-1.1) Sodium Level 138 mmol/L (136-145) Potassium Level 4.6 mmol/L (3.5-5.1) Chloride Level 101 mmol/L (98-107) Carbon Dioxide Level 26 mmol/L (21-32) Anion Gap 11 (6-14) Blood Urea Nitrogen 35 mg/dL (8-26) Creatinine 1.7 mg/dL (0.7-1.3) Estimated GFR (Cockcroft-Gault) 41.9 BUN/Creatinine Ratio 21 (6-20) Glucose Level 110 mg/dL (70-99) Calcium Level 8.8 mg/dL (8.5-10.1) Magnesium Level 2.3 mg/dL (1.8-2.4) Total Bilirubin 0.4 mg/dL (0.2-1.0) Aspartate Amino Transf (AST/SGOT) 26 U/L (15-37) Alanine Aminotransferase (ALT/SGPT) 30 U/L (16-63) Alkaline Phosphatase 84 U/L (46-116) Troponin I Quantitative < 0.017 ng/mL (0.000-0.055) < 0.017 ng/mL (0.000-0.055) < 0.017 ng/mL (0.000-0.055) AM-Szj-Q-Type Natriuretic Peptide 41 pg/mL (0-124) Total Protein 7.5 g/dL (6.4-8.2) Albumin 3.5 g/dL (3.4-5.0) Albumin/Globulin Ratio 0.9 (1.0-1.7) Thyroid Stimulating Hormone (TSH) 2.501 uIU/mL (0.358-3.74) Urine Collection Type Unknown Urine Color Yellow Urine Clarity Clear Urine pH 5.5 Urine Specific [place] 1.025 Urine Protein Negative mg/dL (NEG-TRACE) Urine Glucose (UA) Negative mg/dL (NEG) Urine Ketones (Stick) Negative mg/dL (NEG) Urine Blood Negative (NEG) Urine Nitrite Negative (NEG) Urine Bilirubin Negative (NEG) Urine Urobilinogen Dipstick 1.0 mg/dL (0.2 mg/dL) Urine Leukocyte Esterase Negative (NEG) Urine RBC Occ /HPF (0-2) Urine WBC Occ /HPF (0-4) Urine Squamous Epithelial Cells Few /LPF Urine Bacteria 0 /HPF (0-FEW) Urine Hyaline Casts Moderate /HPF Urine Granular Casts Few /HPF Urine Mucus Slight /LPF Test 10/29/18 03:35 White Blood Count 11.1 x10^3/uL (4.0-11.0) Red Blood Count 5.50 x10^6/uL (4.30-5.70) Hemoglobin 15.6 g/dL (13.0-17.5) Hematocrit 48.3 % (39.0-53.0) Mean Corpuscular Volume 88 fL (79-100) Mean Corpuscular Hemoglobin 28 pg (25-35) Mean Corpuscular Hemoglobin Concent 32 g/dL (31-37) Red Cell Distribution Width 15.1 % (11.5-14.5) Platelet Count 240 x10^3/uL (140-400) Neutrophils (%) (Auto) 61 % (31-73) Lymphocytes (%) (Auto) 26 % (24-48) Monocytes (%) (Auto) 10 % (0-9) Eosinophils (%) (Auto) 2 % (0-3) Basophils (%) (Auto) 1 % (0-3) Neutrophils # (Auto) 6.8 x10^3uL (1.8-7.7) Lymphocytes # (Auto) 2.9 x10^3/uL (1.0-4.8) Monocytes # (Auto) 1.1 x10^3/uL (0.0-1.1) Eosinophils # (Auto) 0.2 x10^3/uL (0.0-0.7) Basophils # (Auto) 0.1 x10^3/uL (0.0-0.2) Sodium Level 141 mmol/L (136-145) Potassium Level 4.4 mmol/L (3.5-5.1) Chloride Level 102 mmol/L (98-107) Carbon Dioxide Level 29 mmol/L (21-32) Anion Gap 10 (6-14) Blood Urea Nitrogen 27 mg/dL (8-26) Creatinine 1.2 mg/dL (0.7-1.3) Estimated GFR (Cockcroft-Gault) 62.6 BUN/Creatinine Ratio 23 (6-20) Glucose Level 91 mg/dL (70-99) Calcium Level 8.6 mg/dL (8.5-10.1) Total Bilirubin 0.6 mg/dL (0.2-1.0) Aspartate Amino Transf (AST/SGOT) 18 U/L (15-37) Alanine Aminotransferase (ALT/SGPT) 28 U/L (16-63) Alkaline Phosphatase 78 U/L (46-116) Total Protein 7.1 g/dL (6.4-8.2) Albumin 3.4 g/dL (3.4-5.0) Albumin/Globulin Ratio 0.9 (1.0-1.7) Triglycerides Level 125 mg/dL (0-150) Cholesterol Level 136 mg/dL (0-200) LDL Cholesterol, Calculated 89 mg/dL (0-100) VLDL Cholesterol, Calculated 25 mg/dL (0-40) Non-HDL Cholesterol Calculated 114 mg/dL (0-129) HDL Cholesterol 22 mg/dL (40-60) Cholesterol/HDL Ratio 6.2 Laboratory Tests Test 10/28/18 16:30 10/28/18 20:45 10/28/18 23:10 10/28/18 23:40 White Blood Count 14.2 x10^3/uL (4.0-11.0) Red Blood Count 5.50 x10^6/uL (4.30-5.70) Hemoglobin 16.1 g/dL (13.0-17.5) Hematocrit 48.3 % (39.0-53.0) Mean Corpuscular Volume 88 fL (79-100) Mean Corpuscular Hemoglobin 29 pg (25-35) Mean Corpuscular Hemoglobin Concent 34 g/dL (31-37) Red Cell Distribution Width 14.8 % (11.5-14.5) Platelet Count 230 x10^3/uL (140-400) Neutrophils (%) (Auto) 76 % (31-73) Lymphocytes (%) (Auto) 13 % (24-48) Monocytes (%) (Auto) 10 % (0-9) Eosinophils (%) (Auto) 1 % (0-3) Basophils (%) (Auto) 1 % (0-3) Neutrophils # (Auto) 10.7 x10^3uL (1.8-7.7) Lymphocytes # (Auto) 1.9 x10^3/uL (1.0-4.8) Monocytes # (Auto) 1.4 x10^3/uL (0.0-1.1) Eosinophils # (Auto) 0.1 x10^3/uL (0.0-0.7) Basophils # (Auto) 0.1 x10^3/uL (0.0-0.2) Prothrombin Time 14.5 SEC (11.7-14.0) Prothromb Time International Ratio 1.2 (0.8-1.1) Sodium Level 138 mmol/L (136-145) Potassium Level 4.6 mmol/L (3.5-5.1) Chloride Level 101 mmol/L (98-107) Carbon Dioxide Level 26 mmol/L (21-32) Anion Gap 11 (6-14) Blood Urea Nitrogen 35 mg/dL (8-26) Creatinine 1.7 mg/dL (0.7-1.3) Estimated GFR (Cockcroft-Gault) 41.9 BUN/Creatinine Ratio 21 (6-20) Glucose Level 110 mg/dL (70-99) Calcium Level 8.8 mg/dL (8.5-10.1) Magnesium Level 2.3 mg/dL (1.8-2.4) Total Bilirubin 0.4 mg/dL (0.2-1.0) Aspartate Amino Transf (AST/SGOT) 26 U/L (15-37) Alanine Aminotransferase (ALT/SGPT) 30 U/L (16-63) Alkaline Phosphatase 84 U/L (46-116) Troponin I Quantitative < 0.017 ng/mL (0.000-0.055) < 0.017 ng/mL (0.000-0.055) < 0.017 ng/mL (0.000-0.055) SM-Mpl-B-Type Natriuretic Peptide 41 pg/mL (0-124) Total Protein 7.5 g/dL (6.4-8.2) Albumin 3.5 g/dL (3.4-5.0) Albumin/Globulin Ratio 0.9 (1.0-1.7) Thyroid Stimulating Hormone (TSH) 2.501 uIU/mL (0.358-3.74) Urine Collection Type Unknown Urine Color Yellow Urine Clarity Clear Urine pH 5.5 Urine Specific [place] 1.025 Urine Protein Negative mg/dL (NEG-TRACE) Urine Glucose (UA) Negative mg/dL (NEG) Urine Ketones (Stick) Negative mg/dL (NEG) Urine Blood Negative (NEG) Urine Nitrite Negative (NEG) Urine Bilirubin Negative (NEG) Urine Urobilinogen Dipstick 1.0 mg/dL (0.2 mg/dL) Urine Leukocyte Esterase Negative (NEG) Urine RBC Occ /HPF (0-2) Urine WBC Occ /HPF (0-4) Urine Squamous Epithelial Cells Few /LPF Urine Bacteria 0 /HPF (0-FEW) Urine Hyaline Casts Moderate /HPF Urine Granular Casts Few /HPF Urine Mucus Slight /LPF Test 10/29/18 03:35 White Blood Count 11.1 x10^3/uL (4.0-11.0) Red Blood Count 5.50 x10^6/uL (4.30-5.70) Hemoglobin 15.6 g/dL (13.0-17.5) Hematocrit 48.3 % (39.0-53.0) Mean Corpuscular Volume 88 fL (79-100) Mean Corpuscular Hemoglobin 28 pg (25-35) Mean Corpuscular Hemoglobin Concent 32 g/dL (31-37) Red Cell Distribution Width 15.1 % (11.5-14.5) Platelet Count 240 x10^3/uL (140-400) Neutrophils (%) (Auto) 61 % (31-73) Lymphocytes (%) (Auto) 26 % (24-48) Monocytes (%) (Auto) 10 % (0-9) Eosinophils (%) (Auto) 2 % (0-3) Basophils (%) (Auto) 1 % (0-3) Neutrophils # (Auto) 6.8 x10^3uL (1.8-7.7) Lymphocytes # (Auto) 2.9 x10^3/uL (1.0-4.8) Monocytes # (Auto) 1.1 x10^3/uL (0.0-1.1) Eosinophils # (Auto) 0.2 x10^3/uL (0.0-0.7) Basophils # (Auto) 0.1 x10^3/uL (0.0-0.2) Sodium Level 141 mmol/L (136-145) Potassium Level 4.4 mmol/L (3.5-5.1) Chloride Level 102 mmol/L (98-107) Carbon Dioxide Level 29 mmol/L (21-32) Anion Gap 10 (6-14) Blood Urea Nitrogen 27 mg/dL (8-26) Creatinine 1.2 mg/dL (0.7-1.3) Estimated GFR (Cockcroft-Gault) 62.6 BUN/Creatinine Ratio 23 (6-20) Glucose Level 91 mg/dL (70-99) Calcium Level 8.6 mg/dL (8.5-10.1) Total Bilirubin 0.6 mg/dL (0.2-1.0) Aspartate Amino Transf (AST/SGOT) 18 U/L (15-37) Alanine Aminotransferase (ALT/SGPT) 28 U/L (16-63) Alkaline Phosphatase 78 U/L (46-116) Total Protein 7.1 g/dL (6.4-8.2) Albumin 3.4 g/dL (3.4-5.0) Albumin/Globulin Ratio 0.9 (1.0-1.7) Triglycerides Level 125 mg/dL (0-150) Cholesterol Level 136 mg/dL (0-200) LDL Cholesterol, Calculated 89 mg/dL (0-100) VLDL Cholesterol, Calculated 25 mg/dL (0-40) Non-HDL Cholesterol Calculated 114 mg/dL (0-129) HDL Cholesterol 22 mg/dL (40-60) Cholesterol/HDL Ratio 6.2 Assessment/Plan Assessment/Plan IMP SYNCOPE [id number] TO DECREASED RENAL PERFUSION HYPOTENSION - RESOLVED AFLUTTER CAUSING ABOVE 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
--- NOTE | 2018-10-29 11:22 | PDOC2 ---
AIDEN VILLASEÑOR TRAVEL COTA 10/29/18 1122: CARDIAC CONSULT DATE OF CONSULT Date of Consult DATE: 10/29/18 TIME: 11:15 REASON FOR CONSULT Reason for Consult: syncope New onset a-flutter REFERRING PHYSICIAN Referring Physician: Dr. Restrepo SOURCE Source: Chart review, Patient HISTORY OF PRESENT ILLNESS HISTORY OF PRESENT ILLNESS This is a 57 yo male who presented secondary to syncopal events. Patient is an RN at the [employer]. Sat down to do some charting at work yesterday; vision became blurry. Was diaphoretic and nauseated. Fellow staff report he became very pale. Nearly passed out. Reports he could hear their voices, but could not reports. Denies total LOC. Patient reports this occurring twice before where room began to spin. Symptoms resolved within 5-10 minutes. Has had some weight retention recently. PCP provider put him initially on Lasix 80mg orally. Cr was elevated on labs, so dose was decreased to 60mg. Reports 24lb weight loss in fluid in the last 3 weeks since being on diuretic. Had echo at [facility] last week due to edema. Has not been notified of results. Was noted in atrial flutter upon arrival, which prompted this consult. Does have a family history of CAD with father passing away from an AR in his 40' s and mother had stroke in her 50's. Also has sister with coronary artery disease that is being medically managed. PAST MEDICAL HISTORY Cardiovascular: HTN Pulmonary: Asthma, Other (SHAUNA) CENTRAL NERVOUS SYSTEM: Other (no pertinent hx) GI: No pertinent hx Heme/Onc: No pertinent hx Hepatobiliary: No pertinent hx Psych: No pertinent hx Musculoskeletal: low back pain, Osteoarthritis Infectious disease: No pertinent hx ENT: No pertinent hx Renal/: No pertinent hx Endocrine: No pertinent hx Dermatology: No pertinent hx PAST SURGICAL HISTORY Past Surgical History: Appendectomy, Other (left nephrectomy ) FAMILY HISTORY Family History: Coronary Artery Disease, Hypertension, Kidney Disease, Stroke SOCIAL HISTORY Smoke: No ALCOHOL: none Drugs: None Lives: Alone ALLERGIES ALLERGIES: Coded Allergies: No Known Drug Allergies (Unverified , 10/28/18) ROS Review of System 14 point ROS conducted with pertinent positives noted above in HPI. PHYSICAL EXAM General: Alert, Oriented X3, Cooperative, mild distress HEENT: Atraumatic, Mucous membr. moist/pink Lungs: Clear to auscultation, Other (diminished bases) Heart: Normal S1, Normal S2, Other (tele A-flutter, intermiitent bradycardia. No significant pauses) Abdomen: Soft, No tenderness, Other (obese) Extremities: Other (trace bilateral LE edema ) Skin: No significant lesion Neuro: Normal speech, Sensation intact Psych/Mental Status: Mental status NL, Mood NL MUSCULOSKELETAL: No deformity VITALS VITALS Vital Signs Date Time Temp Pulse Resp B/P (MAP) Pulse Ox O2 Delivery O2 Flow Rate FiO2 10/29/18 08:00 Nasal Cannula 2.0 10/29/18 04:00 97.9 69 14 98/49 (65) 94 97.9 LABS Lab: Laboratory Tests Test 10/28/18 16:30 10/28/18 20:45 10/28/18 23:10 10/28/18 23:40 White Blood Count 14.2 x10^3/uL (4.0-11.0) Red Blood Count 5.50 x10^6/uL (4.30-5.70) Hemoglobin 16.1 g/dL (13.0-17.5) Hematocrit 48.3 % (39.0-53.0) Mean Corpuscular Volume 88 fL (79-100) Mean Corpuscular Hemoglobin 29 pg (25-35) Mean Corpuscular Hemoglobin Concent 34 g/dL (31-37) Red Cell Distribution Width 14.8 % (11.5-14.5) Platelet Count 230 x10^3/uL (140-400) Neutrophils (%) (Auto) 76 % (31-73) Lymphocytes (%) (Auto) 13 % (24-48) Monocytes (%) (Auto) 10 % (0-9) Eosinophils (%) (Auto) 1 % (0-3) Basophils (%) (Auto) 1 % (0-3) Neutrophils # (Auto) 10.7 x10^3uL (1.8-7.7) Lymphocytes # (Auto) 1.9 x10^3/uL (1.0-4.8) Monocytes # (Auto) 1.4 x10^3/uL (0.0-1.1) Eosinophils # (Auto) 0.1 x10^3/uL (0.0-0.7) Basophils # (Auto) 0.1 x10^3/uL (0.0-0.2) Prothrombin Time 14.5 SEC (11.7-14.0) Prothromb Time International Ratio 1.2 (0.8-1.1) Sodium Level 138 mmol/L (136-145) Potassium Level 4.6 mmol/L (3.5-5.1) Chloride Level 101 mmol/L (98-107) Carbon Dioxide Level 26 mmol/L (21-32) Anion Gap 11 (6-14) Blood Urea Nitrogen 35 mg/dL (8-26) Creatinine 1.7 mg/dL (0.7-1.3) Estimated GFR (Cockcroft-Gault) 41.9 BUN/Creatinine Ratio 21 (6-20) Glucose Level 110 mg/dL (70-99) Calcium Level 8.8 mg/dL (8.5-10.1) Magnesium Level 2.3 mg/dL (1.8-2.4) Total Bilirubin 0.4 mg/dL (0.2-1.0) Aspartate Amino Transf (AST/SGOT) 26 U/L (15-37) Alanine Aminotransferase (ALT/SGPT) 30 U/L (16-63) Alkaline Phosphatase 84 U/L (46-116) Troponin I Quantitative < 0.017 ng/mL (0.000-0.055) < 0.017 ng/mL (0.000-0.055) < 0.017 ng/mL (0.000-0.055) TF-Unn-T-Type Natriuretic Peptide 41 pg/mL (0-124) Total Protein 7.5 g/dL (6.4-8.2) Albumin 3.5 g/dL (3.4-5.0) Albumin/Globulin Ratio 0.9 (1.0-1.7) Thyroid Stimulating Hormone (TSH) 2.501 uIU/mL (0.358-3.74) Urine Collection Type Unknown Urine Color Yellow Urine Clarity Clear Urine pH 5.5 Urine Specific [place] 1.025 Urine Protein Negative mg/dL (NEG-TRACE) Urine Glucose (UA) Negative mg/dL (NEG) Urine Ketones (Stick) Negative mg/dL (NEG) Urine Blood Negative (NEG) Urine Nitrite Negative (NEG) Urine Bilirubin Negative (NEG) Urine Urobilinogen Dipstick 1.0 mg/dL (0.2 mg/dL) Urine Leukocyte Esterase Negative (NEG) Urine RBC Occ /HPF (0-2) Urine WBC Occ /HPF (0-4) Urine Squamous Epithelial Cells Few /LPF Urine Bacteria 0 /HPF (0-FEW) Urine Hyaline Casts Moderate /HPF Urine Granular Casts Few /HPF Urine Mucus Slight /LPF Test 10/29/18 03:35 White Blood Count 11.1 x10^3/uL (4.0-11.0) Red Blood Count 5.50 x10^6/uL (4.30-5.70) Hemoglobin 15.6 g/dL (13.0-17.5) Hematocrit 48.3 % (39.0-53.0) Mean Corpuscular Volume 88 fL (79-100) Mean Corpuscular Hemoglobin 28 pg (25-35) Mean Corpuscular Hemoglobin Concent 32 g/dL (31-37) Red Cell Distribution Width 15.1 % (11.5-14.5) Platelet Count 240 x10^3/uL (140-400) Neutrophils (%) (Auto) 61 % (31-73) Lymphocytes (%) (Auto) 26 % (24-48) Monocytes (%) (Auto) 10 % (0-9) Eosinophils (%) (Auto) 2 % (0-3) Basophils (%) (Auto) 1 % (0-3) Neutrophils # (Auto) 6.8 x10^3uL (1.8-7.7) Lymphocytes # (Auto) 2.9 x10^3/uL (1.0-4.8) Monocytes # (Auto) 1.1 x10^3/uL (0.0-1.1) Eosinophils # (Auto) 0.2 x10^3/uL (0.0-0.7) Basophils # (Auto) 0.1 x10^3/uL (0.0-0.2) Sodium Level 141 mmol/L (136-145) Potassium Level 4.4 mmol/L (3.5-5.1) Chloride Level 102 mmol/L (98-107) Carbon Dioxide Level 29 mmol/L (21-32) Anion Gap 10 (6-14) Blood Urea Nitrogen 27 mg/dL (8-26) Creatinine 1.2 mg/dL (0.7-1.3) Estimated GFR (Cockcroft-Gault) 62.6 BUN/Creatinine Ratio 23 (6-20) Glucose Level 91 mg/dL (70-99) Calcium Level 8.6 mg/dL (8.5-10.1) Total Bilirubin 0.6 mg/dL (0.2-1.0) Aspartate Amino Transf (AST/SGOT) 18 U/L (15-37) Alanine Aminotransferase (ALT/SGPT) 28 U/L (16-63) Alkaline Phosphatase 78 U/L (46-116) Total Protein 7.1 g/dL (6.4-8.2) Albumin 3.4 g/dL (3.4-5.0) Albumin/Globulin Ratio 0.9 (1.0-1.7) Triglycerides Level 125 mg/dL (0-150) Cholesterol Level 136 mg/dL (0-200) LDL Cholesterol, Calculated 89 mg/dL (0-100) VLDL Cholesterol, Calculated 25 mg/dL (0-40) Non-HDL Cholesterol Calculated 114 mg/dL (0-129) HDL Cholesterol 22 mg/dL (40-60) Cholesterol/HDL Ratio 6.2 ASSESSMENT/PLAN ASSESSMENT/PLAN 1. Syncope, possible vasovagal 2. Atrial flutter, new onset. TSH WNL. Remains in aflutter. mild bradycardia noted on tele. Lowest 43. No pauses. Not on anticoagulation 3. IZZY on CKD s/p nephrectomy 4. Hypertension; hypotension upon arrival 5. SHAUNA; difficult with CPAP due to ill-fitting mask despite multiple different masks 6, Morbid obesity. Recommendations Obtain echo from [facility] conducted last week Check lipids Will anticoagulate with heparin gtt No AV rhiannon blocking agents with bradycardia Given risk factor and significant family history of CVD, will proceed with MPI to r/o ischemia. If MPI negative, will proceed with BARRY guided CV tomorrow NPO p MN. BÁRBARA WASHINGTON MD 10/29/18 3596: CARDIAC CONSULT ASSESSMENT/PLAN ASSESSMENT/PLAN Patient seen and examined. Agree with above nurse practitioner note. 57-year-old man with episode of atrial fibrillation and on examination he is morbidly obese and has sleep apnea. Has 1+ pitting edema in the legs. Discussed risks benefits and alternatives to cardioversion. He wishes to proceed. Continue anticoagulation for now. AIDEN VILLASEÑOR APRN Oct 29, 2018 11:22 BÁRBARA WASHINGTON MD Oct 29, 2018 18:26
[2018-10-29] MEDS ORDERED: 0.9 % SODIUM CHLORIDE 10 ML DISP.SYRIN. IV PRN ×2 (12:15)
[2018-10-29] MEDS ORDERED: LIDOCAINE 2% TOPICAL JELLY 5GM TUBE. TP ONE (12:15)
[2018-10-29] MEDS ORDERED: LIDOCAINE 2% VISCOUS 15 ML SOLUTION. MM ONE (12:15)
[2018-10-29] MEDS ORDERED: BENZOCAINE ONE 20% MUCOSAL SPRAY. MM (12:15)
[2018-10-29] MEDS ORDERED: HEPARIN 25,000UTS/500ML PREMIX 500 ML IV PRN (12:15)
[2018-10-29] MEDS ORDERED: HEPARIN for IV BOLUS 10,000 UNIT/10 ML VIAL. IV PRN (12:15)
[2018-10-29] MEDS ORDERED: REGADENOSON 0.4 MG/5 ML DISP.SYRIN. IV ONE (12:30)
--- NOTE | 2018-10-29 15:09 | NUR ---
SS following for discharge planning. SS reviewed pt chart. Pt is from home. Pt is self pay pt. No discharge needs noted at this time. SS will continue to follow for pending discharge needs.
--- NOTE | 2018-10-29 15:26 | RAD ---
MR#: [id number] Date of Study: 10/29/2018 Ordering Physician: AIDEN VILLASEÑOR, Referring Physician: BRITTNEE ROJAS Tech: RT Tanner (R) (N) APPROVED REPORT Test Type: Pharmacological Stress Nurse/Tech: Lu Denis RN Test Indications: Syncope,a-flutter Cardiac History: Hypertension,asthma Medications: See Electronic Medical Record Medical History: See Electronic Medical Record Resting ECG: a-flutter/a-fib Resting Heart Rate: 76 bpm Resting Blood Pressure: 120/65mmHg Pretest Chest Pain: No chest pain Nurse/Tech Notes S1,S2 irregular rhythm. Lungs are clear to auscultation. Consent: The procedure was explained to the patient in lay terms. Informed consent was witnessed. Juni eout was entered into [employer]. History and Stress Test performed by JUDI Denton, LEE ANN (R) (N) Pharm. Details Pharmacologic stress testing was performed using 0.4mg per 5ml of regadenoson given intravenously ove r 7-10 seconds. Stress Symptoms Dyspnea at first then resolved POST EXERCISE Reason for Termination: Infusion complete Target HR: No Max HR: 114 bpm Max Blood Pressure: 134/59mmHg Blood Pressure response to exercise: Normal blood pressure response during stress. Heart Rate response to exercise: WNL Chest Pain: No. Arrhythmia: No. ST Change: No. INTERPRETATION Stress EKG Conclusion: No evidence of stress induced EKG changes. Imaging Protocol IMAGE PROTOCOL: Stress Tc-99m/rest Tc-99m 2 days Rest: Stress: Viability: Radiopharm.Tc99m Sestamibi [id number] Duration 15min. Img Date 10/29/2018 Inj-Img [id number]. Stress Admin Site: IV - Left AntecubitalAdministrator: JUDI Denton, LEE ANN (R)(N) STRESS DATA End Diast. Vol.163.0mlAv. Heart Rate93.0bpm End Syst. Vol.54.0mlCO Index BSA0.0L/min Myocardial Fzvg337.0gEject. Jotqofii49.0% Stress Rates Pk. Fill Rate3.15EDV/secLVtime Pk. Fill 78.27msec Pk. Empty Rate3.27ESV/secLVtime Pk. Eject98.96msec 08/23 Pk. Fill2.41EDV/sec Stress Scores Regional WT2.00Summed WT7.00 Regional WM0.00Summed WM1.00 LV Perfusion Normal perfusion at stress imaging Wall Motion Normal wall motion with EF > 60% LV Perf. Quant 17 Seg. SSS0.00 Stress Defect Extent (% LAD)0.00Rest Defect Extent (% LAD)Rev. Defect Extent (% LAD)0.00 Stress Defect Extent (% LCX) 0.00Rest Defect Extent (% LCX)Rev. Defect Extent (% LCX)0.00 Stress Defect Extent (% RCA)0.00Rest Defect Extent (% RCA)Rev. Defect Extent (% RCA)0.00 Stress Defect Extent (% LUIS)0.00Rest Defect Extent (% LUIS)Rev. Defect Extent (% LUIS)0.00 Other Information Quality:Average Risk Assessment: Low Risk Conclusion 1. No evidence of stress induced EKG changes 2. Normal perfusion at stress. 3. Normal EF at > 60% 4. Low risk study. Signed by : Jaime Del Rosario, Electronically Approved : 10/29/2018 15:25:19
--- NOTE | 2018-10-29 16:17 | EKG ---
[facility] [address] [place] [address] Test Date: 2018-10-29 Test Time: 16:03:09 Pat Name: KD DARBY Department: Room: 112 1 Gender: M Third Cook: : 1960 Requested By: GELY OSPINA Order Number: [id number] Reading MD: Jaime Del Rosario MD Measurements Intervals [place] Rate: 86 P: -26 WA: 186 QRS: -34 QRSD: 86 T: 34 QT: 334 QTc: 402 Interpretive Statements ATRIAL FLUTTER/FIB POOR R-WAVE PROGRESSION LAD Electronically Signed On 11-06-2018 23:19:59 CDT by Jaime Del Rosario MD
[2018-10-29] MEDS: cefTRIAXone IV Push 1 GM VIAL. IVP SCH (20:16)
[2018-10-29] MEDS ORDERED: NON FORMULARY ITEM (Modafinil 100 MG) PO SCH (23:45)
[2018-10-30] VITALS (8 sets, daily range): BP systolic 82–127; BP diastolic 58–86
[2018-10-30] MEDS ORDERED: PREGABALIN 50 MG CAPSULE PO ONE
[2018-10-30] MEDS: ALLOPURINOL 100 MG TABLET. PO SCH ×3 (00:09→20:30)
[2018-10-30] MEDS: rOPINIRole 1 MG TABLET. PO SCH ×3 (00:09→20:30)
[2018-10-30] MEDS ORDERED: PREGABALIN 50 MG CAPSULE ONE (00:10)
[2018-10-30 02:50] LABS: HEMATOCRIT 47.8 % (39.0-53.0); HEMOGLOBIN 15.8 g/dL (13.0-17.5); RED BLOOD COUNT 5.5 x10^6/uL (4.30-5.70); WHITE BLOOD COUNT 11.5 x10^3/uL (4.0-11.0)
[2018-10-30 03:02] LABS: ALBUMIN 3.5 g/dL (3.4-5.0); CALCIUM 8.9 mg/dL (8.5-10.1); CREATININE 1.2 mg/dL (0.7-1.3); GFR 62.6; PHOSPHORUS 3.4 mg/dL (2.6-4.7); POTASSIUM 4.3 mmol/L (3.5-5.1)
[2018-10-30] MEDS ORDERED: PROCHLORPERAZINE 10 MG/2 ML VIAL. IV PRN (07:00)
[2018-10-30] MEDS ORDERED: IV RINGERS,LACTATED 1000ML 1,000 ML IV SCH (07:00)
[2018-10-30] MEDS ORDERED: LIDOCAINE 1% PF 2 ML VIAL. ID PRN (07:00)
[2018-10-30] MEDS ORDERED: HYDROmorphone 2 MG/ML VIAL IV PRN (07:00)
[2018-10-30] MEDS ORDERED: MORPHINE SULFATE 2 MG/ML VIAL. IV PRN (07:00)
[2018-10-30] MEDS ORDERED: ONDANSETRON PF 4 MG/2 ML VIAL. IV PRN (07:00)
[2018-10-30] MEDS ORDERED: fentaNYL PF VIAL 100 MCG/2 ML VIAL IV PRN ×2 (07:00)
[2018-10-30] MEDS ORDERED: LIDOCAINE 2% VISCOUS 15 ML SOLUTION. MM ONE (09:00)
[2018-10-30] MEDS ORDERED: LISINOPRIL 20 MG TABLET PO SCH (09:00)
[2018-10-30] MEDS ORDERED: LIDOCAINE 2% TOPICAL JELLY 5GM TUBE. TP ONE (09:00)
[2018-10-30] MEDS ORDERED: BENZOCAINE ONE 20% MUCOSAL SPRAY. MM (09:00)
--- NOTE | 2018-10-30 09:58 | PDOC ---
Provider Note Provider Note Spoke to patient this a.m. about his MPI - no acute ischemia. Will start eliquis and plan for BARRY/CVN later today. continue hep till this evening until 2nd dose of eliquis given. Patient understands r/b/a and wishes to proceed. Thanks. BÁRBARA WASHINGTON MD Oct 30, 2018 09:58
--- NOTE | 2018-10-30 11:05 | PDOC ---
PROGRESS NOTES History of Present Illness History of Present Illness ASSESSMENT AND PLAN: Atrial flutter, syncope acute on chronic renal failure and leukocytosis. 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 consult Nephrology consult Cardiology. BARRY TODAY IV fluids. Cardiac monitoring. Deep vein thrombosis prophylaxis. Full code. Home meds. Frequent labs. Methicillin resistant Staphylococcus aureus screening. PRN Zofran, p.r.n. Tylenol. CONSULT NEUROLOGY RE SYNCOPE, NEW CONSULT 10/30 D/W RN Vitals Vitals Vital Signs Date Time Temp Pulse Resp B/P (MAP) Pulse Ox O2 Delivery O2 Flow Rate FiO2 10/30/18 04:00 98.0 72 124/86 (99) 99 Room Air 98.0 10/29/18 16:00 2.0 10/29/18 11:48 14 Physical Exam Physical Exam Max HR: 114 bpm Max Blood Pressure: 134/59mmHg Blood Pressure response to exercise: Normal blood pressure response during stress. Heart Rate response to exercise: WNL Chest Pain: No. Arrhythmia: No. ST Change: No. INTERPRETATION Stress EKG Conclusion: No evidence of stress induced EKG changes. Imaging Protocol IMAGE PROTOCOL: Stress Tc-99m/rest Tc-99m 2 days Rest: Stress: Viability: Radiopharm. Tc99m Sestamibi Dose 33mCi Duration 15min. Img Date 10/29/2018 Inj-Img Time 60min. Stress Admin Site: IV - Left Antecubital Vp & General Counsel: JUDI Denton, ARRT (R)(N) STRESS DATA End Diast. Vol. 163.0ml Av. Heart Rate 93.0bpm End Syst. Vol. 54.0ml CO Index BSA 0.0L/min Myocardial Mass 182.0g Eject. Fraction 67.0% Stress Rates Pk. Fill Rate 3.15EDV/sec LVtime Pk. Fill 78.27msec Pk. Empty Rate 3.27ESV/sec LVtime Pk. Eject 98.96msec 08/23 Pk. Fill 2.41EDV/sec Stress Scores Regional WT 2.00 Summed WT 7.00 Regional WM 0.00 Summed WM 1.00 LV Perfusion Normal perfusion at stress imaging Wall Motion Normal wall motion with EF > 60% LV Perf. Quant 17 Seg. SSS 0.00 Stress Defect Extent (% LAD) 0.00 Rest Defect Extent (% LAD) Rev. Defect Extent (% LAD) 0.00 Stress Defect Extent (% LCX) 0.00 Rest Defect Extent (% LCX) Rev. Defect Extent (% LCX) 0.00 Stress Defect Extent (% RCA) 0.00 Rest Defect Extent (% RCA) Rev. Defect Extent (% RCA) 0.00 Stress Defect Extent (% LUIS) 0.00 Rest Defect Extent (% LUIS) Rev. Defect Extent (% LUIS) 0.00 Other Information Quality:Average Risk Assessment: Low Risk Conclusion 1. No evidence of stress induced EKG changes 2. Normal perfusion at stress. 3. Normal EF at > 60% 4. Low risk study. Signed by : Jaime Del Rosario, Electronically Approved : 10/29/2018 15:25:19 General: Alert, Oriented X3, Cooperative, mild distress Heart: Normal S1, Normal S2, Other (tele A-flutter, intermiitent bradycardia. No significant pauses) Lungs: Clear Abdomen: Soft, No tenderness, Other (obese) Extremities: No cyanosis, Other (trace bilateral LE edema ) Skin: No significant lesion Labs LABS Laboratory Tests Test 10/29/18 21:45 10/30/18 02:30 10/30/18 09:00 Heparin Anti-Xa Act, Unfractionated 0.16 IU/mL (0.30-0.70) 0.87 IU/mL (0.30-0.70) 0.51 IU/mL (0.30-0.70) White Blood Count 11.5 x10^3/uL (4.0-11.0) Red Blood Count 5.50 x10^6/uL (4.30-5.70) Hemoglobin 15.8 g/dL (13.0-17.5) Hematocrit 47.8 % (39.0-53.0) Mean Corpuscular Volume 87 fL (79-100) Mean Corpuscular Hemoglobin 29 pg (25-35) Mean Corpuscular Hemoglobin Concent 33 g/dL (31-37) Red Cell Distribution Width 15.0 % (11.5-14.5) Platelet Count 230 x10^3/uL (140-400) Sodium Level 137 mmol/L (136-145) Potassium Level 4.3 mmol/L (3.5-5.1) Chloride Level 102 mmol/L (98-107) Carbon Dioxide Level 29 mmol/L (21-32) Anion Gap 6 (6-14) Blood Urea Nitrogen 23 mg/dL (8-26) Creatinine 1.2 mg/dL (0.7-1.3) Estimated GFR (Cockcroft-Gault) 62.6 Glucose Level 117 mg/dL (70-99) Calcium Level 8.9 mg/dL (8.5-10.1) Phosphorus Level 3.4 mg/dL (2.6-4.7) Albumin 3.5 g/dL (3.4-5.0) Comment Review of Relevant I have reviewed the following items lyndsey (where applicable) has been applied. Labs Laboratory Tests Test 10/28/18 16:30 10/28/18 18:30 10/28/18 20:45 10/28/18 23:10 White Blood Count 14.2 x10^3/uL (4.0-11.0) Red Blood Count 5.50 x10^6/uL (4.30-5.70) Hemoglobin 16.1 g/dL (13.0-17.5) Hematocrit 48.3 % (39.0-53.0) Mean Corpuscular Volume 88 fL (79-100) Mean Corpuscular Hemoglobin 29 pg (25-35) Mean Corpuscular Hemoglobin Concent 34 g/dL (31-37) Red Cell Distribution Width 14.8 % (11.5-14.5) Platelet Count 230 x10^3/uL (140-400) Neutrophils (%) (Auto) 76 % (31-73) Lymphocytes (%) (Auto) 13 % (24-48) Monocytes (%) (Auto) 10 % (0-9) Eosinophils (%) (Auto) 1 % (0-3) Basophils (%) (Auto) 1 % (0-3) Neutrophils # (Auto) 10.7 x10^3uL (1.8-7.7) Lymphocytes # (Auto) 1.9 x10^3/uL (1.0-4.8) Monocytes # (Auto) 1.4 x10^3/uL (0.0-1.1) Eosinophils # (Auto) 0.1 x10^3/uL (0.0-0.7) Basophils # (Auto) 0.1 x10^3/uL (0.0-0.2) Prothrombin Time 14.5 SEC (11.7-14.0) Prothromb Time International Ratio 1.2 (0.8-1.1) Sodium Level 138 mmol/L (136-145) Potassium Level 4.6 mmol/L (3.5-5.1) Chloride Level 101 mmol/L (98-107) Carbon Dioxide Level 26 mmol/L (21-32) Anion Gap 11 (6-14) Blood Urea Nitrogen 35 mg/dL (8-26) Creatinine 1.7 mg/dL (0.7-1.3) Estimated GFR (Cockcroft-Gault) 41.9 BUN/Creatinine Ratio 21 (6-20) Glucose Level 110 mg/dL (70-99) Calcium Level 8.8 mg/dL (8.5-10.1) Magnesium Level 2.3 mg/dL (1.8-2.4) Total Bilirubin 0.4 mg/dL (0.2-1.0) Aspartate Amino Transf (AST/SGOT) 26 U/L (15-37) Alanine Aminotransferase (ALT/SGPT) 30 U/L (16-63) Alkaline Phosphatase 84 U/L (46-116) Troponin I Quantitative < 0.017 ng/mL (0.000-0.055) < 0.017 ng/mL (0.000-0.055) ZG-Cuq-Z-Type Natriuretic Peptide 41 pg/mL (0-124) Total Protein 7.5 g/dL (6.4-8.2) Albumin 3.5 g/dL (3.4-5.0) Albumin/Globulin Ratio 0.9 (1.0-1.7) Thyroid Stimulating Hormone (TSH) 2.501 uIU/mL (0.358-3.74) Nasal Screen MRSA (PCR) Negative (Negative) Urine Collection Type Unknown Urine Color Yellow Urine Clarity Clear Urine pH 5.5 Urine Specific [employer] 1.025 Urine Protein Negative mg/dL (NEG-TRACE) Urine Glucose (UA) Negative mg/dL (NEG) Urine Ketones (Stick) Negative mg/dL (NEG) Urine Blood Negative (NEG) Urine Nitrite Negative (NEG) Urine Bilirubin Negative (NEG) Urine Urobilinogen Dipstick 1.0 mg/dL (0.2 mg/dL) Urine Leukocyte Esterase Negative (NEG) Urine RBC Occ /HPF (0-2) Urine WBC Occ /HPF (0-4) Urine Squamous Epithelial Cells Few /LPF Urine Bacteria 0 /HPF (0-FEW) Urine Hyaline Casts Moderate /HPF Urine Granular Casts Few /HPF Urine Mucus Slight /LPF Test 10/28/18 23:40 10/29/18 03:35 10/29/18 21:45 10/30/18 02:30 Troponin I Quantitative < 0.017 ng/mL (0.000-0.055) White Blood Count 11.1 x10^3/uL (4.0-11.0) 11.5 x10^3/uL (4.0-11.0) Red Blood Count 5.50 x10^6/uL (4.30-5.70) 5.50 x10^6/uL (4.30-5.70) Hemoglobin 15.6 g/dL (13.0-17.5) 15.8 g/dL (13.0-17.5) Hematocrit 48.3 % (39.0-53.0) 47.8 % (39.0-53.0) Mean Corpuscular Volume 88 fL (79-100) 87 fL (79-100) Mean Corpuscular Hemoglobin 28 pg (25-35) 29 pg (25-35) Mean Corpuscular Hemoglobin Concent 32 g/dL (31-37) 33 g/dL (31-37) Red Cell Distribution Width 15.1 % (11.5-14.5) 15.0 % (11.5-14.5) Platelet Count 240 x10^3/uL (140-400) 230 x10^3/uL (140-400) Neutrophils (%) (Auto) 61 % (31-73) Lymphocytes (%) (Auto) 26 % (24-48) Monocytes (%) (Auto) 10 % (0-9) Eosinophils (%) (Auto) 2 % (0-3) Basophils (%) (Auto) 1 % (0-3) Neutrophils # (Auto) 6.8 x10^3uL (1.8-7.7) Lymphocytes # (Auto) 2.9 x10^3/uL (1.0-4.8) Monocytes # (Auto) 1.1 x10^3/uL (0.0-1.1) Eosinophils # (Auto) 0.2 x10^3/uL (0.0-0.7) Basophils # (Auto) 0.1 x10^3/uL (0.0-0.2) Sodium Level 141 mmol/L (136-145) 137 mmol/L (136-145) Potassium Level 4.4 mmol/L (3.5-5.1) 4.3 mmol/L (3.5-5.1) Chloride Level 102 mmol/L (98-107) 102 mmol/L (98-107) Carbon Dioxide Level 29 mmol/L (21-32) 29 mmol/L (21-32) Anion Gap 10 (6-14) 6 (6-14) Blood Urea Nitrogen 27 mg/dL (8-26) 23 mg/dL (8-26) Creatinine 1.2 mg/dL (0.7-1.3) 1.2 mg/dL (0.7-1.3) Estimated GFR (Cockcroft-Gault) 62.6 62.6 BUN/Creatinine Ratio 23 (6-20) Glucose Level 91 mg/dL (70-99) 117 mg/dL (70-99) Calcium Level 8.6 mg/dL (8.5-10.1) 8.9 mg/dL (8.5-10.1) Total Bilirubin 0.6 mg/dL (0.2-1.0) Aspartate Amino Transf (AST/SGOT) 18 U/L (15-37) Alanine Aminotransferase (ALT/SGPT) 28 U/L (16-63) Alkaline Phosphatase 78 U/L (46-116) Total Protein 7.1 g/dL (6.4-8.2) Albumin 3.4 g/dL (3.4-5.0) 3.5 g/dL (3.4-5.0) Albumin/Globulin Ratio 0.9 (1.0-1.7) Triglycerides Level 125 mg/dL (0-150) Cholesterol Level 136 mg/dL (0-200) LDL Cholesterol, Calculated 89 mg/dL (0-100) VLDL Cholesterol, Calculated 25 mg/dL (0-40) Non-HDL Cholesterol Calculated 114 mg/dL (0-129) HDL Cholesterol 22 mg/dL (40-60) Cholesterol/HDL Ratio 6.2 Heparin Anti-Xa Act, Unfractionated 0.16 IU/mL (0.30-0.70) 0.87 IU/mL (0.30-0.70) Phosphorus Level 3.4 mg/dL (2.6-4.7) Test 10/30/18 09:00 Heparin Anti-Xa Act, Unfractionated 0.51 IU/mL (0.30-0.70) Laboratory Tests Test 10/29/18 21:45 10/30/18 02:30 10/30/18 09:00 Heparin Anti-Xa Act, Unfractionated 0.16 IU/mL (0.30-0.70) 0.87 IU/mL (0.30-0.70) 0.51 IU/mL (0.30-0.70) White Blood Count 11.5 x10^3/uL (4.0-11.0) Red Blood Count 5.50 x10^6/uL (4.30-5.70) Hemoglobin 15.8 g/dL (13.0-17.5) Hematocrit 47.8 % (39.0-53.0) Mean Corpuscular Volume 87 fL (79-100) Mean Corpuscular Hemoglobin 29 pg (25-35) Mean Corpuscular Hemoglobin Concent 33 g/dL (31-37) Red Cell Distribution Width 15.0 % (11.5-14.5) Platelet Count 230 x10^3/uL (140-400) Sodium Level 137 mmol/L (136-145) Potassium Level 4.3 mmol/L (3.5-5.1) Chloride Level 102 mmol/L (98-107) Carbon Dioxide Level 29 mmol/L (21-32) Anion Gap 6 (6-14) Blood Urea Nitrogen 23 mg/dL (8-26) Creatinine 1.2 mg/dL (0.7-1.3) Estimated GFR (Cockcroft-Gault) 62.6 Glucose Level 117 mg/dL (70-99) Calcium Level 8.9 mg/dL (8.5-10.1) Phosphorus Level 3.4 mg/dL (2.6-4.7) Albumin 3.5 g/dL (3.4-5.0) Medications Current Medications Ondansetron HCl (Zofran) 4 mg PRN Q8HRS PRN IV NAUSEA/VOMITING; Start 10/28/18 at 17:30; Stop 10/29/18 at 17:29; Status DC Acetaminophen (Tylenol) 650 mg PRN Q4HRS PRN PO FEVER; Start 10/28/18 at 17:30 ; Stop 10/29/18 at 17:29; Status DC Nitroglycerin (Nitrostat) 0.4 mg PRN Q5MIN PRN SL CHEST PAIN; Start 10/28/18 at 17:30; Stop 10/29/18 at 17:29; Status DC Ceftriaxone Sodium (Rocephin) 1 gm Q24H IVP Last administered on 10/29/18at 20: 16; Start 10/28/18 at 20:00 Heparin Sodium/ Dextrose 500 ml @ 0 mls/hr CONT PRN IV SEE I/O RECORD Last administered on 10/30/18at 05:40; Start 10/29/18 at 12:15 Heparin Sodium (Porcine) (Heparin Sodium) 4,600 unit PRN Q6HRS PRN IV FOR UFH LEVEL LESS THAN 0.2 Last administered on 10/29/18at 22:48; Start 10/29/18 at 12: 15 Sodium Chloride (Normal Saline Flush) 10 ml QSHIFT PRN IV AFTER MEDS AND BLOOD DRAWS; Start 10/29/18 at 12:15 Lidocaine HCl (Xylocaine 2% Topical 5gm Tube) 1 pablito 1X ONCE TP ; Start at 12:15; Stop 10/29/18 at 12:16; Status DC Lidocaine HCl (Viscous Lidocaine) 15 ml 1X ONCE MM ; Start 10/29/18 at 12:15; Stop 10/29/18 at 12:16; Status DC Benzocaine (Hurricaine One) 2 spray 1X ONCE MM ; Start 10/29/18 at 12:15; Stop 10/29/18 at 12:16; Status DC Sodium Chloride (Normal Saline Flush) 10 ml QSHIFT PRN IV AFTER MEDS AND BLOOD DRAWS; Start 10/29/18 at 12:15 Regadenoson (Lexiscan) 0.4 mg 1X ONCE IV Last administered on 10/29/18at 13:12 ; Start 10/29/18 at 12:30; Stop 10/29/18 at 12:31; Status DC Bacitracin 01043 unit/Sodium Chloride 1,000 ml @ 1,000 mls/hr 1X ONCE IRR ; Start 10/29/18 at 06:00; Stop 10/29/18 at 06:59; Status UNV Cefazolin Sodium/ Dextrose 50 ml @ 100 mls/hr 1X PREOP PRN IV PRIOR TO PROCEDURE; Start 10/29/18 at 06:00; Status UNV Ondansetron HCl (Zofran) 4 mg PRN Q6HRS PRN IV NAUSEA/VOMITING; Start 10/30/18 at 07:00; Stop 10/31/18 at 06:59 Fentanyl Citrate (Fentanyl 2ml Vial) 25 mcg PRN Q5MIN PRN IV MILD PAIN; Start 10/30/18 at 07:00; Stop 10/31/18 at 06:59 Fentanyl Citrate (Fentanyl 2ml Vial) 50 mcg PRN Q5MIN PRN IV MODERATE TO SEVERE PAIN; Start 10/30/18 at 07:00; Stop 10/31/18 at 06:59 Morphine Sulfate (Morphine Sulfate) 1 mg PRN Q10MIN PRN IV SEVERE PAIN; Start 10/30/18 at 07:00; Stop 10/31/18 at 06:59 Ringer's Solution 1,000 ml @ 30 mls/hr Q24H IV ; Start 10/30/18 at 07:00; Stop 10/30/18 at 18:59 Lidocaine HCl (Xylocaine-Mpf 1% 2ml Vial) 2 ml PRN 1X PRN ID PRIOR TO IV START ; Start 10/30/18 at 07:00; Stop 10/31/18 at 06:59 Hydromorphone HCl (Dilaudid) 0.5 mg PRN Q10MIN PRN IV SEV PAIN, Second choice; Start 10/30/18 at 07:00; Stop 10/31/18 at 06:59 Prochlorperazine Edisylate (Compazine) 5 mg PACU PRN PRN IV NAUSEA, MRX1; Start 10/30/18 at 07:00; Stop 10/31/18 at 06:59 Lidocaine HCl (Xylocaine 2% Topical 5gm Tube) 1 pablito 1X ONCE TP ; Start at 09:00; Stop 10/30/18 at 09:01; Status DC Lidocaine HCl (Viscous Lidocaine) 15 ml 1X ONCE MM ; Start 10/30/18 at 09:00; Stop 10/30/18 at 09:01; Status DC Benzocaine (Hurricaine One) 2 spray 1X ONCE MM ; Start 10/30/18 at 09:00; Stop 10/30/18 at 09:01; Status DC Allopurinol (Zyloprim) 100 mg BID PO Last administered on 10/30/18at 00:09; Start 10/30/18 at 00:00 Furosemide (Lasix) 60 mg DAILY PO ; Start 10/30/18 at 09:00 Acetaminophen/ Hydrocodone Bitart (Lortab 10/325) 1 tab QID PO ; Start 10/30/18 at 09:00 Lisinopril (Prinivil) 20 mg DAILY PO ; Start 10/30/18 at 09:00 Non-Formulary Medication (Modafinil ) 100 mg PO ; Start 10/29/18 at 23:45; Status UNV Pregabalin (Lyrica) 100 mg QID PO ; Start 10/30/18 at 09:00 Ropinirole HCl (Requip) 1 mg DAILY PO ; Start 10/30/18 at 09:00 Ropinirole HCl (Requip) 2 mg QHS PO Last administered on 10/30/18at 00:09; Start 10/30/18 at 00:00 Pregabalin (Lyrica) 100 mg ONCE ONCE PO Last administered on 10/30/18at 00:09; Start 10/30/18 at 00:00; Stop 10/30/18 at 00:01; Status DC Info (Anti-Coagulation Monitoring By Pharmacy) 1 each PRN DAILY PRN MC SEE COMMENTS; Start 10/30/18 at 07:45 Apixaban (Eliquis) 5 mg BID PO ; Start 10/30/18 at 11:30 Active Scripts Active Reported Requip (Ropinirole Hcl) 1 Mg Tablet 2 Tab PO QHS Requip (Ropinirole Hcl) 1 Mg Tablet 1 Tab PO DAILY Modafinil 100 Mg Tablet 100 Mg PO Hydrocodone-Apap 10-325 (Hydrocodone Bit/Acetaminophen) 1 Tab Tablet 1 Tab PO QID Lisinopril 20 Mg Tablet 1 Tab PO DAILY Furosemide 40 Mg Tablet 60 Mg PO DAILY Allopurinol 100 Mg Tablet 1 Tab PO BID Lyrica (Pregabalin) 100 Mg Capsule 1 Cap PO QID Vitals/I & O Vital Sign - Last 24 Hours 10/29/18 10/29/18 10/29/18 10/29/18 11:48 16:00 20:00 20:00 Temp 98.1 98.1 98.2 98.1 98.1 98.2 Pulse 70 70 73 Resp 14 B/P (MAP) 112/58 (76) 118/60 (79) 105/60 (75) Pulse Ox 94 94 98 O2 Delivery Room Air Nasal Cannula Room Air Room Air O2 Flow Rate 2.0 10/29/18 10/30/18 23:59 04:00 Temp 98.2 98.0 98.2 98.0 Pulse 83 72 B/P (MAP) 126/78 (94) 124/86 (99) Pulse Ox 98 99 O2 Delivery Room Air Room Air Intake and Output 10/29/18 10/29/18 10/30/18 14:59 22:59 06:59 Intake Total 0 ml 350 ml 1150 ml Output Total 300 ml 400 ml 400 ml Balance -300 ml -50 ml 750 ml MIESHA MARTINEZ MD Oct 30, 2018 11:05
[2018-10-30] MEDS: FUROSEMIDE 40 MG TABLET. PO SCH (11:06)
[2018-10-30] MEDS: HYDROcodone/APAP 10/325 1 TAB TABLET PO SCH ×4 (11:06→20:30)
[2018-10-30] MEDS: PREGABALIN 50 MG CAPSULE PO SCH ×4 (11:07→20:30)
[2018-10-30] MEDS: APIXABAN 5 MG TABLET. PO SCH ×2 (11:08→20:29)
[2018-10-30] MEDS: ANTI-COAG MONITOR BY PHARMACY. MC PRN (12:53)
[2018-10-30] MEDS ORDERED: LIDOCAINE 2% JELLY 6ML IN APPLICATOR. TP ONE (13:15)
[2018-10-30] MEDS ORDERED: LIDOCAINE 2% PF 5 ML VIAL. ONE (13:44)
[2018-10-30] MEDS ORDERED: PROPOFOL 40 ML IV ONE (13:44)
--- NOTE | 2018-10-30 15:07 | EKG ---
[facility] [address] [place] [address] Test Date: 2018-10-30 Test Time: 14:33:32 Pat Name: KD DARBY Department: Room: 268 1 Gender: M [employer] Operator: KARLENE : 1960 Requested By: JAIME WASHINGTON Order Number: [id number] Reading MD: Jaime Washington MD Measurements Intervals [place] Rate: 89 P: 53 MD: 244 QRS: -10 QRSD: 90 T: 32 QT: 336 QTc: 410 Interpretive Statements SINUS RHYTHM PROLONGED MD INTERVAL Electronically Signed On 11-08-2018 9:30:06 CDT by Jaime Washington MD
--- NOTE | 2018-10-30 15:21 | CARD ---
MR#: [id number] Date of Study: 10/30/2018 Ordering Physician: AIDEN VILLASEÑOR, Referring Physician: Aliya ROJAS: Aimee Laura RDCS APPROVED REPORT EXAM: Transesophageal echocardiogram with color flow Doppler and Synchronized Cardioversion. INDICATION Atrial Fibrillation Reason For Test : Rule out Intracardiac Thrombus. PROCEDURE After obtaining informed consent, patient underwent transesophageal echo in the PACU. Type of Sedation : General Anesthesia Sedation was achieved with Propofol 240 mg intravenously. Transesophageal probe was inserted and advanced into esophagus by Jaime Del Rosario MD. The BARRY was performed without complications. Rhythm following Synchronized Cardioversion: Normal Sinus Rhythm Throughout the procedure, the blood pressure, pulse oximetry, cardiac rhythm, and rate were monitored . LEFT VENTRICLE The left ventricle is normal size. There is normal left ventricular wall thickness. Left ventricle sy stolic function is mildly impaired. The Ejection Fraction is 35-40%. There is moderate global hypokin esis. No left ventricle thrombus noted on this study. There is no ventricular septal defect visualize d. RIGHT VENTRICLE The right ventricle is normal size. There is normal right ventricular wall thickness. The right ventr icular systolic function is normal. ATRIA The left atrium size is normal. The right atrium size is normal. The interatrial septum is intact wit h no evidence for an atrial septal defect or patent foramen ovale as noted on 2-D or Doppler imaging. There is no thrombus noted in the left atrial appendage. AORTIC VALVE The aortic valve is normal in structure and function. Doppler and Color Flow revealed no significant aortic regurgitation. There is no significant aortic valvular stenosis. MITRAL VALVE The mitral valve is normal in structure and function. There is no evidence of mitral valve prolapse. There is no mitral valve stenosis. Doppler and Color-flow revealed trace mitral regurgitation. TRICUSPID VALVE The tricuspid valve is normal in structure and function. Doppler and Color Flow revealed no tricuspid valve regurgitation noted. There is no tricuspid valve stenosis. PULMONIC VALVE The pulmonary valve is normal in structure and function. Doppler and Color Flow revealed no pulmonic valvular regurgitation. There is no pulmonic valvular stenosis. GREAT VESSELS The aortic root is normal in size. The IVC is normal in size and collapses >50% with inspiration. Critical Notification Critical Value: No <Conclusion> There is moderate global hypokinesis. Left ventricle systolic function is mildly impaired. The Ejection Fraction is 35-40%. Successful cardioversion to SR. Signed by : Jaime Del Rosario, Electronically Approved : 10/30/2018 15:21:23
[2018-10-30] MEDS ORDERED: METOPROLOL TARTRATE 5 MG/5 ML VIAL. IVP ONE (19:00)
[2018-10-30] MEDS ORDERED: METOPROLOL TART IMMED RELEASE 25 MG TABLET. PO ONE (19:00)
[2018-10-30] MEDS: cefTRIAXone IV Push 1 GM VIAL. IVP SCH (20:29)
[2018-10-31] VITALS: BP 89/48
[2018-10-31 03:58] LABS: BASO # 0.1 x10^3/uL (0.0-0.2); BASO % 1 % (0-3); EOS # 0.1 x10^3/uL (0.0-0.7); EOS % 1 % (0-3); HEMATOCRIT 46.4 % (39.0-53.0); HEMOGLOBIN 15.2 g/dL (13.0-17.5); LYMPH # 2.6 x10^3/uL (1.0-4.8); LYMPH % 23 % (24-48); MEAN CORPUSCULAR HEMOGLOBIN 29 pg (25-35); MEAN CORPUSCULAR HGB CONC 33 g/dL (31-37); MEAN CORPUSCULAR VOLUME 88 fL (79-100); MONO # 1.3 x10^3/uL (0.0-1.1); MONO % 12 % (0-9); NEUT # 7.4 x10^3uL (1.8-7.7); NEUT % 64 % (31-73); PLATELET COUNT 228 x10^3/uL (140-400); RED BLOOD COUNT 5.28 x10^6/uL (4.30-5.70); RED CELL DISTRIBUTION WIDTH 15.1 % (11.5-14.5); WHITE BLOOD COUNT 11.5 x10^3/uL (4.0-11.0)
[2018-10-31 04:00] VITALS: BP 124/60
[2018-10-31 04:25] LABS: ALBUMIN 3.5 g/dL (3.4-5.0); ALBUMIN/GLOBULIN RATIO 0.9 (1.0-1.7); CALCIUM 8.7 mg/dL (8.5-10.1); GFR 34.7; POTASSIUM 4.4 mmol/L (3.5-5.1); TOTAL BILIRUBIN 0.7 mg/dL (0.2-1.0); TOTAL PROTEIN 7.2 g/dL (6.4-8.2)
[2018-10-31 07:23] VITALS: BP 104/63
[2018-10-31] MEDS: ALLOPURINOL 100 MG TABLET. PO SCH (08:17)
[2018-10-31] MEDS: FUROSEMIDE 40 MG TABLET. PO SCH (08:17)
[2018-10-31] MEDS: rOPINIRole 1 MG TABLET. PO SCH (08:17)
[2018-10-31] MEDS: APIXABAN 5 MG TABLET. PO SCH (08:18)
[2018-10-31] MEDS: HYDROcodone/APAP 10/325 1 TAB TABLET PO SCH ×2 (08:19→14:42)
[2018-10-31] MEDS: PREGABALIN 50 MG CAPSULE PO SCH ×2 (08:23→14:42)
[2018-10-31] MEDS ORDERED: METOPROLOL TART IMMED RELEASE 25 MG TABLET. PO SCH (09:00)
[2018-10-31] MEDS ORDERED: LISINOPRIL 10 MG TABLET PO SCH (09:00)
[2018-10-31 09:40] VITALS: BP 63/42
[2018-10-31 11:00] VITALS: BP 91/46
--- NOTE | 2018-10-31 12:22 | PDOC ---
CARDIOLOGY PROGRESS NOTE SUBJECTIVE: No new events overnight. Patient had some mild hypotension this morning. Denies any other issues. No chest pain. Has maintained sinus rhythm. OBJECTIVE: Vital SIgns: Vital Signs Date Time Temp Pulse Resp B/P (MAP) Pulse Ox O2 Delivery O2 Flow Rate FiO2 10/31/18 11:00 97.8 76 22 91/46 (61) 95 Room Air 97.8 10/30/18 14:30 3 I & O Intake and Output 10/31/18 07:00 Intake Total 450 ml Output Total 1700 ml Balance -1250 ml Intake Oral 100 ml IV Total 350 ml Output Urine Total 1700 ml # Voids 1 Objective: Normal heart tones. Clear lung mason. Trace bilateral pitting edema. CURRENT MEDICATIONS: Current Medications Medications (Trade) Dose Ordered Sig/Venu Start Time Stop Time Status Last Admin Dose Admin Acetaminophen (Tylenol) 650 mg PRN Q4HRS PRN 10/28/18 17:30 10/29/18 17:29 DC Acetaminophen/ Hydrocodone Bitart (Lortab 10/325) 1 tab QID 10/30/18 09:00 10/31/18 08:19 1 TAB Allopurinol (Zyloprim) 100 mg BID 10/30/18 00:00 10/31/18 08:17 100 MG Apixaban (Eliquis) 5 mg BID 10/30/18 11:30 10/31/18 08:18 5 MG Bacitracin 49257 unit/Sodium Chloride 1,000 ml @ 1,000 mls/hr 1X ONCE 10/29/18 06:00 10/29/18 06:59 UNV Benzocaine (Hurricaine One) 2 spray 1X ONCE 10/30/18 09:00 10/30/18 09:01 DC 10/30/18 13:15 2 SPRAY Cefazolin Sodium/ Dextrose 50 ml @ 100 mls/hr 1X PREOP PRN 10/29/18 06:00 UNV Ceftriaxone Sodium (Rocephin) 1 gm Q24H 10/28/18 20:00 10/30/18 20:29 1 GM Fentanyl Citrate (Fentanyl 2ml Vial) 50 mcg PRN Q5MIN PRN 10/30/18 07:00 10/31/18 06:59 DC Furosemide (Lasix) 60 mg DAILY 10/30/18 09:00 10/31/18 08:17 60 MG Heparin Sodium (Porcine) (Heparin Sodium) 4,600 unit PRN Q6HRS PRN 10/29/18 12:15 10/30/18 16:54 DC 10/29/18 22:48 4,600 UNIT Heparin Sodium/ Dextrose 500 ml @ 0 mls/hr CONT PRN 10/29/18 12:15 10/30/18 16:54 DC 10/30/18 05:40 44.2 MLS/HR Hydromorphone HCl (Dilaudid) 0.5 mg PRN Q10MIN PRN 10/30/18 07:00 10/31/18 06:59 DC Info (Anti-Coagulation Monitoring By Pharmacy) 1 each PRN DAILY PRN 10/30/18 07:45 10/30/18 12:53 1 EACH Lidocaine HCl (Glydo (Lidocaine) Jelly) 1 pablito 1X ONCE 10/30/18 13:15 10/30/18 13:16 DC 10/30/18 13:15 1 PABLITO Lidocaine HCl (Lidocaine Pf 2% Vial) 5 ml STK-MED ONCE 10/30/18 13:44 10/30/18 13:45 DC Lidocaine HCl (Viscous Lidocaine) 15 ml 1X ONCE 10/30/18 09:00 10/30/18 09:01 DC 10/30/18 13:15 15 ML Lidocaine HCl (Xylocaine 2% Topical 5gm Tube) 1 pablito 1X ONCE 10/30/18 09:00 10/30/18 09:01 DC Lidocaine HCl (Xylocaine-Mpf 1% 2ml Vial) 2 ml PRN 1X PRN 10/30/18 07:00 10/31/18 06:59 DC Lisinopril (Prinivil) 10 mg DAILY 10/31/18 09:00 10/31/18 08:18 10 MG Metoprolol Tartrate (Lopressor Vial) 5 mg 1X ONCE 10/30/18 19:00 10/30/18 19:01 DC 10/30/18 18:38 5 MG Metoprolol Tartrate (Lopressor) 25 mg BID 10/31/18 09:00 10/31/18 08:17 25 MG Morphine Sulfate (Morphine Sulfate) 1 mg PRN Q10MIN PRN 10/30/18 07:00 10/31/18 06:59 DC Nitroglycerin (Nitrostat) 0.4 mg PRN Q5MIN PRN 10/28/18 17:30 10/29/18 17:29 DC Non-Formulary Medication (Modafinil ) 100 mg PO 10/29/18 23:45 UNV Ondansetron HCl (Zofran) 4 mg PRN Q6HRS PRN 10/30/18 07:00 10/31/18 06:59 DC Pregabalin (Lyrica) 100 mg STK-MED ONCE 10/30/18 00:10 10/31/18 09:44 DC Prochlorperazine Edisylate (Compazine) 5 mg PACU PRN PRN 10/30/18 07:00 10/31/18 06:59 DC Propofol 40 ml @ As Directed STK-MED ONCE 10/30/18 13:44 10/30/18 13:45 DC Regadenoson (Lexiscan) 0.4 mg 1X ONCE 10/29/18 12:30 10/29/18 12:31 DC 10/29/18 13:12 0.4 MG Ringer's Solution 1,000 ml @ 30 mls/hr Q24H 10/30/18 07:00 10/30/18 18:59 DC 10/30/18 13:16 30 MLS/HR Ropinirole HCl (Requip) 2 mg QHS 10/30/18 00:00 10/30/18 20:30 2 MG Sodium Chloride (Normal Saline Flush) 10 ml QSHIFT PRN 10/29/18 12:15 DIAGNOSTIC TESTING: No new testing. ASSESSMENT: 1. Atrial fibrillation with rapid ventricular response 2. Hypertension 3. Obstructive sleep apnea PLAN: Home on Lasix 40mg, Lisinopril 2.5 and Metoprolol 25mg bid and Eliquis 5mg bid. Doing well status post cardioversion. Medication adjustments made to help avoid hypotension. We'll follow-up in the office in 4 weeks. BÁRBARA WASHINGTON MD Oct 31, 2018 12:22
[2018-10-31] MEDS ORDERED: LISI2.5T PO (14:19)
[2018-10-31] MEDS ORDERED: METO25TA4 PO (14:19)
[2018-10-31] MEDS ORDERED: APIX5TAB PO (14:20)
[2018-10-31] MEDS ORDERED: FURO40TA4 PO (14:23)
[2018-10-31 14:39] VITALS: BP 95/54
--- NOTE | 2018-10-31 15:10 | NUR ---
Discharge Note: LIAN DARBY Discharge instructions and discharge home medications reviewed with Patient and a copy given. All questions have been answered and understanding verbalized.
[2018-10-31] MEDS: ANTI-COAG MONITOR BY PHARMACY. MC PRN (15:15)
--- NOTE | 2018-10-31 17:42 | PDOC2 ---
NEUROLOGY CONSULT Date of Admission Date of Admission DATE: 10/31/18 TIME: 17:27 Reason for Consult Reason for Consult: IMPRESSION: Syncope. Seizure evaluation. LOC? Hypotension events, BP 63/42 mmHg. Atrial flutter. SHAUNA. Morbid obesity. RECOMMENDATIONS/PLAN: EEG. [place]. Consulted cardiology. Lab: see orders. Weight reduction. FU with PCP. FU with Neurology as needed. HISTORY OF THE PRESENT ILLNESS: 57-y-old male patient with above medical diseases had an episode during the work decreased as blurred vision and decreased consciousness with perspiration. He was able to hear people's conversation when this happen and heard talks on ambulance en rout to the ER of [facility]. No focalized numbness or weakness. He was found to have atrial flutter and has been treated by cardiology. PAST MEDICAL HISTORY Cardiovascular: HTN Pulmonary: Asthma, SHAUNA. CENTRAL NERVOUS SYSTEM: Other (no pertinent hx) GI: No pertinent hx Heme/Onc: No pertinent hx Hepatobiliary: No pertinent hx Psych: No pertinent hx Musculoskeletal: low back pain, Osteoarthritis Infectious disease: No pertinent hx ENT: No pertinent hx Renal/: No pertinent hx Endocrine: No pertinent hx Dermatology: No pertinent hx PAST SURGICAL HISTORY Appendectomy, left nephrectomy. FAMILY HISTORY Coronary Artery Disease, Hypertension, Kidney Disease, Stroke ALLERGIES No Known Drug Allergies (Unverified , 10/28/18) MEDICATIONS: Refer to [facility] SOCIAL HISTORY: Lives alone. Denies smoking, drinking, and illicit drug use. REVIEW OF SYSTEMS: Constitutional: Morbid obesity.. Head: No traumatic brain or head injury. Skin: No edema, or rash. Ear: No infection. Eyes: No vision loss or color blindness. Nose: No bleeding or purulent discharges. Hearing: Mild hearing decrease. Neck: No injury. Cardiac: A Flutter, new converted to sinus rhythm this time. Pulmonary: No COPD. GI: No GI ulcer, GI bleeding. Urinary/genital: No dysuria, incontinence, urinary retention. Endocrinologic: Morbid obesity. Skeletomuscular: No muscular atrophy, deformity. Neurological: see HP. Psychiatric: Denies drug use/abuse. Otherwise, not [id number] review of systems. PHYSICAL EXAMINATION: General appearance is in no acute distress. HEENT: Normocephalic and nontraumatic. Eyes, nose, ears, and throat are unremarkable. Neck is supple. No lymphadenopathy. No bruits are heard over the carotid artery. No crepitus. Cardiovascular: S1, S2, regular rate and rhythm. Pulmonary: Clear to auscultation bilaterally. Abdomen: Bowel sounds are positive. Abdomen is soft, nontender, and nondistended. Extremities: No rash, lesions. No restriction of range of motion NEUROLOGICAL EXAMINATION: Alert Oriented to time, place and person. PERRL. EOMI. CN: no focal findings. Muscle tone: within normal. Muscle strength: 5- DTR: 1 due to obesity. Plantar reflex: Flexor response bilaterally Gait: not examined in bed. Sensory exam: no abnormal findings. No cerebellar signs elicited. F-T-N test accurate. Current Medications Current Medications Current Medications Ondansetron HCl (Zofran) 4 mg PRN Q8HRS PRN IV NAUSEA/VOMITING; Start 10/28/18 at 17:30; Stop 10/29/18 at 17:29; Status DC Acetaminophen (Tylenol) 650 mg PRN Q4HRS PRN PO FEVER; Start 10/28/18 at 17:30 ; Stop 10/29/18 at 17:29; Status DC Nitroglycerin (Nitrostat) 0.4 mg PRN Q5MIN PRN SL CHEST PAIN; Start 10/28/18 at 17:30; Stop 10/29/18 at 17:29; Status DC Ceftriaxone Sodium (Rocephin) 1 gm Q24H IVP Last administered on 10/30/18at 20: 29; Start 10/28/18 at 20:00; Stop 10/31/18 at 15:59; Status DC Heparin Sodium/ Dextrose 500 ml @ 0 mls/hr CONT PRN IV SEE I/O RECORD Last administered on 10/30/18at 05:40; Start 10/29/18 at 12:15; Stop 10/30/18 at 16:54 ; Status DC Heparin Sodium (Porcine) (Heparin Sodium) 4,600 unit PRN Q6HRS PRN IV FOR UFH LEVEL LESS THAN 0.2 Last administered on 10/29/18at 22:48; Start 10/29/18 at 12: 15; Stop 10/30/18 at 16:54; Status DC Sodium Chloride (Normal Saline Flush) 10 ml QSHIFT PRN IV AFTER MEDS AND BLOOD DRAWS; Start 10/29/18 at 12:15; Stop 10/31/18 at 11:00; Status DC Lidocaine HCl (Xylocaine 2% Topical 5gm Tube) 1 pablito 1X ONCE TP ; Start at 12:15; Stop 10/29/18 at 12:16; Status DC Lidocaine HCl (Viscous Lidocaine) 15 ml 1X ONCE MM ; Start 10/29/18 at 12:15; Stop 10/29/18 at 12:16; Status DC Benzocaine (Hurricaine One) 2 spray 1X ONCE MM ; Start 10/29/18 at 12:15; Stop 10/29/18 at 12:16; Status DC Sodium Chloride (Normal Saline Flush) 10 ml QSHIFT PRN IV AFTER MEDS AND BLOOD DRAWS; Start 10/29/18 at 12:15; Stop 10/31/18 at 15:59; Status DC Regadenoson (Lexiscan) 0.4 mg 1X ONCE IV Last administered on 10/29/18at 13:12 ; Start 10/29/18 at 12:30; Stop 10/29/18 at 12:31; Status DC Bacitracin 54590 unit/Sodium Chloride 1,000 ml @ 1,000 mls/hr 1X ONCE IRR ; Start 10/29/18 at 06:00; Stop 10/29/18 at 06:59; Status UNV Cefazolin Sodium/ Dextrose 50 ml @ 100 mls/hr 1X PREOP PRN IV PRIOR TO PROCEDURE; Start 10/29/18 at 06:00; Status UNV Ondansetron HCl (Zofran) 4 mg PRN Q6HRS PRN IV NAUSEA/VOMITING; Start 10/30/18 at 07:00; Stop 10/31/18 at 06:59; Status DC Fentanyl Citrate (Fentanyl 2ml Vial) 25 mcg PRN Q5MIN PRN IV MILD PAIN; Start 10/30/18 at 07:00; Stop 10/31/18 at 06:59; Status DC Fentanyl Citrate (Fentanyl 2ml Vial) 50 mcg PRN Q5MIN PRN IV MODERATE TO SEVERE PAIN; Start 10/30/18 at 07:00; Stop 10/31/18 at 06:59; Status DC Morphine Sulfate (Morphine Sulfate) 1 mg PRN Q10MIN PRN IV SEVERE PAIN; Start 10/30/18 at 07:00; Stop 10/31/18 at 06:59; Status DC Ringer's Solution 1,000 ml @ 30 mls/hr Q24H IV Last administered on 10/30/18at 13:16; Start 10/30/18 at 07:00; Stop 10/30/18 at 18:59; Status DC Lidocaine HCl (Xylocaine-Mpf 1% 2ml Vial) 2 ml PRN 1X PRN ID PRIOR TO IV START ; Start 10/30/18 at 07:00; Stop 10/31/18 at 06:59; Status DC Hydromorphone HCl (Dilaudid) 0.5 mg PRN Q10MIN PRN IV SEV PAIN, Second choice; Start 10/30/18 at 07:00; Stop 10/31/18 at 06:59; Status DC Prochlorperazine Edisylate (Compazine) 5 mg PACU PRN PRN IV NAUSEA, MRX1; Start 10/30/18 at 07:00; Stop 10/31/18 at 06:59; Status DC Lidocaine HCl (Xylocaine 2% Topical 5gm Tube) 1 pablito 1X ONCE TP ; Start at 09:00; Stop 10/30/18 at 09:01; Status DC Lidocaine HCl (Viscous Lidocaine) 15 ml 1X ONCE MM Last administered on at 13:15; Start 10/30/18 at 09:00; Stop 10/30/18 at 09:01; Status DC Benzocaine (Hurricaine One) 2 spray 1X ONCE MM Last administered on 10/30/18at 13:15; Start 10/30/18 at 09:00; Stop 10/30/18 at 09:01; Status DC Allopurinol (Zyloprim) 100 mg BID PO Last administered on 10/31/18at 08:17; Start 10/30/18 at 00:00; Stop 10/31/18 at 15:59; Status DC Furosemide (Lasix) 60 mg DAILY PO Last administered on 10/31/18at 08:17; Start 10/30/18 at 09:00; Stop 10/31/18 at 15:59; Status DC Acetaminophen/ Hydrocodone Bitart (Lortab 10/325) 1 tab QID PO Last administered on 10/31/18at 14:42; Start 10/30/18 at 09:00; Stop 10/31/18 at 15:59 ; Status DC Lisinopril (Prinivil) 20 mg DAILY PO Last administered on 10/30/18at 11:05; Start 10/30/18 at 09:00; Stop 10/30/18 at 18:02; Status DC Non-Formulary Medication (Modafinil ) 100 mg PO ; Start 10/29/18 at 23:45; Stop 10/31/18 at 15:59; Status DC Pregabalin (Lyrica) 100 mg QID PO Last administered on 10/31/18at 14:42; Start 10/30/18 at 09:00; Stop 10/31/18 at 15:59; Status DC Ropinirole HCl (Requip) 1 mg DAILY PO Last administered on 10/31/18at 08:17; Start 10/30/18 at 09:00; Stop 10/31/18 at 15:59; Status DC Ropinirole HCl (Requip) 2 mg QHS PO Last administered on 10/30/18at 20:30; Start 10/30/18 at 00:00; Stop 10/31/18 at 15:59; Status DC Pregabalin (Lyrica) 100 mg ONCE ONCE PO Last administered on 10/30/18at 00:09; Start 10/30/18 at 00:00; Stop 10/30/18 at 00:01; Status DC Info (Anti-Coagulation Monitoring By Pharmacy) 1 each PRN DAILY PRN MC SEE COMMENTS Last administered on 10/31/18at 15:15; Start 10/30/18 at 07:45; Stop at 15:59; Status DC Apixaban (Eliquis) 5 mg BID PO Last administered on 10/31/18at 08:18; Start 08/08 at 11:30; Stop 10/31/18 at 15:59; Status DC Lidocaine HCl (Glydo (Lidocaine) Jelly) 1 pablito 1X ONCE TP Last administered on 10/30/18at 13:15; Start 10/30/18 at 13:15; Stop 10/30/18 at 13:16; Status DC Propofol 40 ml @ As Directed STK-MED ONCE IV ; Start 10/30/18 at 13:44; Stop 08/08 at 13:45; Status DC Lidocaine HCl (Lidocaine Pf 2% Vial) 5 ml STK-MED ONCE .ROUTE ; Start 10/30/18 at 13:44; Stop 10/30/18 at 13:45; Status DC Metoprolol Tartrate (Lopressor Vial) 5 mg 1X ONCE IVP Last administered on 08/08at 18:38; Start 10/30/18 at 19:00; Stop 10/30/18 at 19:01; Status DC Metoprolol Tartrate (Lopressor) 25 mg 1X ONCE PO Last administered on at 18:38; Start 10/30/18 at 19:00; Stop 10/30/18 at 19:01; Status DC Metoprolol Tartrate (Lopressor) 25 mg BID PO Last administered on 10/31/18at 08: 17; Start 10/31/18 at 09:00; Stop 10/31/18 at 15:59; Status DC Lisinopril (Prinivil) 10 mg DAILY PO Last administered on 10/31/18at 08:18; Start 10/31/18 at 09:00; Stop 10/31/18 at 15:59; Status DC Pregabalin (Lyrica) 100 mg STK-MED ONCE .ROUTE ; Start 10/30/18 at 00:10; Stop 10/31/18 at 09:44; Status DC Active Scripts Active Reported Furosemide 40 Mg Tablet 40 Mg PO DAILY Eliquis (Apixaban) 5 Mg Tablet 5 Mg PO BID Metoprolol Tartrate 25 Mg Tablet 25 Mg PO BID Lisinopril 2.5 Mg Tablet 2.5 Mg PO DAILY Requip (Ropinirole Hcl) 1 Mg Tablet 2 Tab PO QHS Requip (Ropinirole Hcl) 1 Mg Tablet 1 Tab PO DAILY Modafinil 100 Mg Tablet 100 Mg PO Hydrocodone-Apap 10-325 (Hydrocodone Bit/Acetaminophen) 1 Tab Tablet 1 Tab PO QID Allopurinol 100 Mg Tablet 1 Tab PO BID Lyrica (Pregabalin) 100 Mg Capsule 1 Cap PO QID Allergies Allergies: Allergies Coded Allergies Type Severity Reaction Last Updated Verified No Known Drug Allergies 10/28/18 No ROS Review of System The patient denies any associated fevers, chills, headache, ear pain, rhinorrhea , sore throat, stiff neck, productive cough, chest pain, shortness of breath, back or flank pain, abdominal pain, nausea, vomiting, diarrhea, constipation, dysuria, rash, numbness, weakness, tingling, incontinence, difficulty ambulating, or diaphoresis. Physical Exam Physical Exam General: Well developed, well nourished, no acute distress, well appearing HEENT: Pupils equally round and reactive to light, EOMI, no discharge, normal conjunctiva Neck: Supple, no nuchal rigidity, no JVD, trachea midline, no tenderness Cardiac: RRR, no murmurs, no gallops, no rubs Chest/Lungs: CTAB, no wheeze, no rhonchi, no crackles Abdomen: soft, non-distended, no guarding, no peritoneal signs, non-tender Back: No tenderness Extremities: no edema, pulses intact, non-tender,capillary refill <3 sec bilateral upper and lower extremities, Neuro: Alert and oriented x 4, no focal deficits, normal speech Vitals Vitals: Vital Signs Date Time Temp Pulse Resp B/P (MAP) Pulse Ox O2 Delivery O2 Flow Rate FiO2 10/31/18 14:42 94 Room Air 10/31/18 14:39 97.7 83 22 95/54 (68) 97.7 10/30/18 14:30 3 Labs Labs Laboratory Tests Test 10/29/18 21:45 10/30/18 02:30 10/30/18 09:00 10/30/18 15:35 Heparin Anti-Xa Act, Unfractionated 0.16 IU/mL (0.30-0.70) 0.87 IU/mL (0.30-0.70) 0.51 IU/mL (0.30-0.70) > 1.10 IU/mL (0.30-0.70) White Blood Count 11.5 x10^3/uL (4.0-11.0) Red Blood Count 5.50 x10^6/uL (4.30-5.70) Hemoglobin 15.8 g/dL (13.0-17.5) Hematocrit 47.8 % (39.0-53.0) Mean Corpuscular Volume 87 fL (79-100) Mean Corpuscular Hemoglobin 29 pg (25-35) Mean Corpuscular Hemoglobin Concent 33 g/dL (31-37) Red Cell Distribution Width 15.0 % (11.5-14.5) Platelet Count 230 x10^3/uL (140-400) Sodium Level 137 mmol/L (136-145) Potassium Level 4.3 mmol/L (3.5-5.1) Chloride Level 102 mmol/L (98-107) Carbon Dioxide Level 29 mmol/L (21-32) Anion Gap 6 (6-14) Blood Urea Nitrogen 23 mg/dL (8-26) Creatinine 1.2 mg/dL (0.7-1.3) Estimated GFR (Cockcroft-Gault) 62.6 Glucose Level 117 mg/dL (70-99) Calcium Level 8.9 mg/dL (8.5-10.1) Phosphorus Level 3.4 mg/dL (2.6-4.7) Albumin 3.5 g/dL (3.4-5.0) Test 10/30/18 15:50 10/31/18 03:25 Lactic Acid Level 1.0 mmol/L (0.4-2.0) White Blood Count 11.5 x10^3/uL (4.0-11.0) Red Blood Count 5.28 x10^6/uL (4.30-5.70) Hemoglobin 15.2 g/dL (13.0-17.5) Hematocrit 46.4 % (39.0-53.0) Mean Corpuscular Volume 88 fL (79-100) Mean Corpuscular Hemoglobin 29 pg (25-35) Mean Corpuscular Hemoglobin Concent 33 g/dL (31-37) Red Cell Distribution Width 15.1 % (11.5-14.5) Platelet Count 228 x10^3/uL (140-400) Neutrophils (%) (Auto) 64 % (31-73) Lymphocytes (%) (Auto) 23 % (24-48) Monocytes (%) (Auto) 12 % (0-9) Eosinophils (%) (Auto) 1 % (0-3) Basophils (%) (Auto) 1 % (0-3) Neutrophils # (Auto) 7.4 x10^3uL (1.8-7.7) Lymphocytes # (Auto) 2.6 x10^3/uL (1.0-4.8) Monocytes # (Auto) 1.3 x10^3/uL (0.0-1.1) Eosinophils # (Auto) 0.1 x10^3/uL (0.0-0.7) Basophils # (Auto) 0.1 x10^3/uL (0.0-0.2) Sodium Level 137 mmol/L (136-145) Potassium Level 4.4 mmol/L (3.5-5.1) Chloride Level 100 mmol/L (98-107) Carbon Dioxide Level 29 mmol/L (21-32) Anion Gap 8 (6-14) Blood Urea Nitrogen 32 mg/dL (8-26) Creatinine 2.0 mg/dL (0.7-1.3) Estimated GFR (Cockcroft-Gault) 34.7 BUN/Creatinine Ratio 16 (6-20) Glucose Level 104 mg/dL (70-99) Calcium Level 8.7 mg/dL (8.5-10.1) Total Bilirubin 0.7 mg/dL (0.2-1.0) Aspartate Amino Transf (AST/SGOT) 19 U/L (15-37) Alanine Aminotransferase (ALT/SGPT) 29 U/L (16-63) Alkaline Phosphatase 82 U/L (46-116) Total Protein 7.2 g/dL (6.4-8.2) Albumin 3.5 g/dL (3.4-5.0) Albumin/Globulin Ratio 0.9 (1.0-1.7) Laboratory Tests Test 10/31/18 03:25 White Blood Count 11.5 x10^3/uL (4.0-11.0) Red Blood Count 5.28 x10^6/uL (4.30-5.70) Hemoglobin 15.2 g/dL (13.0-17.5) Hematocrit 46.4 % (39.0-53.0) Mean Corpuscular Volume 88 fL (79-100) Mean Corpuscular Hemoglobin 29 pg (25-35) Mean Corpuscular Hemoglobin Concent 33 g/dL (31-37) Red Cell Distribution Width 15.1 % (11.5-14.5) Platelet Count 228 x10^3/uL (140-400) Neutrophils (%) (Auto) 64 % (31-73) Lymphocytes (%) (Auto) 23 % (24-48) Monocytes (%) (Auto) 12 % (0-9) Eosinophils (%) (Auto) 1 % (0-3) Basophils (%) (Auto) 1 % (0-3) Neutrophils # (Auto) 7.4 x10^3uL (1.8-7.7) Lymphocytes # (Auto) 2.6 x10^3/uL (1.0-4.8) Monocytes # (Auto) 1.3 x10^3/uL (0.0-1.1) Eosinophils # (Auto) 0.1 x10^3/uL (0.0-0.7) Basophils # (Auto) 0.1 x10^3/uL (0.0-0.2) Sodium Level 137 mmol/L (136-145) Potassium Level 4.4 mmol/L (3.5-5.1) Chloride Level 100 mmol/L (98-107) Carbon Dioxide Level 29 mmol/L (21-32) Anion Gap 8 (6-14) Blood Urea Nitrogen 32 mg/dL (8-26) Creatinine 2.0 mg/dL (0.7-1.3) Estimated GFR (Cockcroft-Gault) 34.7 BUN/Creatinine Ratio 16 (6-20) Glucose Level 104 mg/dL (70-99) Calcium Level 8.7 mg/dL (8.5-10.1) Total Bilirubin 0.7 mg/dL (0.2-1.0) Aspartate Amino Transf (AST/SGOT) 19 U/L (15-37) Alanine Aminotransferase (ALT/SGPT) 29 U/L (16-63) Alkaline Phosphatase 82 U/L (46-116) Total Protein 7.2 g/dL (6.4-8.2) Albumin 3.5 g/dL (3.4-5.0) Albumin/Globulin Ratio 0.9 (1.0-1.7) CANDE OLSON MD Oct 31, 2018 17:42
--- NOTE | 2018-10-31 21:36 | DS ---
DATE OF DISCHARGE: 10/31/2018 ADMISSION DIAGNOSES: 1. Atrial flutter. 2. Syncope. 3. [id number] renal failure. 4. Leukocytosis. DISCHARGE DIAGNOSES: 1. Resolving flutter resolving syncope. 2. Resolving Leukocytosis. 3. Resolving acute renal failure. CONSULTS: Nephrology and Cardiology. PROCEDURES: None. HOSPITAL COURSE: The patient is a pleasant middle-aged male who had a syncopal episode while he was working at [employer] [facility] [employer]. He is an RN. He was initially admitted to the ICU. The above consults were obtained. He was noted to be in atrial flutter. We did serial cardiac enzymes, serial EKGs, cardiac monitoring. DVT prophylaxis. Continued his home meds. Over the past couple of days, he has returned to his baseline. We plan to discharge to home with close outpatient followup. DISPOSITION: Home. ACTIVITY: As tolerated. DIET: Cardiac. MEDICATIONS: Please see the MRAD. TOTAL TIME: 32 minutes. BRYNN YEPEZ DO DR: VICENTA/catarina JOB#: [id number] / [id number]
== END 2018-10-31 15:10 | disposition home or self-care (01) | DRG 308 ==
LOC: ER 15:37 → 1 WEST ICU 17:53 → CVICU 10-30 08:24
PROVIDERS: ADMIT Internal Medicine; ATTEND Internal Medicine
PROC: 5A2204Z Restoration of Cardiac Rhythm, Single (ICD-10-PCS; principal; 2018-10-30 13:45)
PROC: B24BZZ4 Ultrasonography of Heart with Aorta, Transesophageal (ICD-10-PCS; 2018-10-30 13:45)
DX: I48.92 Unspecified atrial flutter (principal); N17.0 Acute kidney failure with tubular necrosis; Z68.43 Body mass index [BMI] 50.0-59.9, adult; I48.91 Unspecified atrial fibrillation; N18.9 Chronic kidney disease, unspecified; I12.9 Hypertensive chronic kidney disease with stage 1 through stage 4 chronic kidney disease, or unspecified chronic kidney disease; E66.01 Morbid (severe) obesity due to excess calories; D72.829 Elevated white blood cell count, unspecified; G47.33 Obstructive sleep apnea (adult) (pediatric); J45.909 Unspecified asthma, uncomplicated; I95.9 Hypotension, unspecified; M19.90 Unspecified osteoarthritis, unspecified site; Z79.01 Long term (current) use of anticoagulants; Z82.3 Family history of stroke; Z82.49 Family history of ischemic heart disease and other diseases of the circulatory system; Z90.5 Acquired absence of kidney; Z79.899 Other long term (current) drug therapy
CPT/HCPCS: 36415; 71045; 76376; 78452; 80053; 80061; 80069; 81001; 83605; 83735; 83880; 84443; 84484; 85025; 85027; 85520; 85610; 87641; 92960; 93005; 93017; 93312; 93325; 96374; A9500; J0696; J1644; J2001; J2704; J2785; J3490; J7120; 99285-25